=== PATIENT | male | born 1980 | race Caucasian/White ===

== ENCOUNTER 2016-10-21 04:44 | Observation (INO) ==
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
[2016-10-21 05:53] LABS: Bilirubin,Urine Negative (Negative); Blood,Urine Trace (Negative); Clarity,Urine Clear (Clear); Color,Urine Yellow (Yellow); Glucose,Urine (UA) Normal (Normal); Ketones,Urine Negative (Negative); Leukocyte Esterase,Urine Negative (Negative); Nitrite,Urine Negative (Negative); PH,Urine 6.5 pH Units (5.0-8.0); Protein,Urine Negative (Neg-Trace); Specific Gravity,Urine 1.007 (1.010-1.025); Urobilinogen,Urine Normal (Normal)
[2016-10-21 05:55] LABS: Bacteria,Urine None Seen per hpf (None-Few); Hyaline Casts,Urine None Seen per lpf (None-Few); RBC,Urine 0-3 per hpf (0-3); Squamous Epithelial Cell,Urine Many per lpf (None-Few); WBC,Urine 0-3 per hpf (0-3)
[2016-10-21 05:58] LABS: Amphetamine Screen,Urine Negative ng/mL (Cutoff=1000); Barbiturate Screen,Urine Negative ng/mL (Cutoff=200); Benzodiazepines Screen,Urine Negative ng/mL (Cutoff=200); Cannabinoid Screen,Urine Negative ng/mL (Cutoff = 50); Cocaine Screen,Urine Negative ng/mL (Cutoff= 300); Opiate Screen,Urine Negative ng/mL (Cutoff=300); Phencyclidine Screen,Urine Negative ng/mL (Cutoff=25)
[2016-10-21 06:05] LABS: Basophils % 0.3 %; Eosinophils # 0.2 K/mcL (0.0-0.6); Eosinophils % 1.5 %; Hematocrit 38.1 % (37.5-50.1); Hemoglobin 13.3 g/dL (12.9-16.9); Immature Granulocytes % 0.5 % (0-4); Lymphocytes # 2.6 K/mcL (0.6-4.6); Lymphocytes % 25.8 %; Mean Corpuscular HGB Conc 34.9 g/dL (31.6-35.5); Mean Corpuscular Hemoglobin 29.7 pg (28.0-33.3); Mean Platelet Volume 10.9 fL (9.4-12.4); Monocytes # 0.7 K/mcL (0.0-1.3); Monocytes % 7.4 %; Neutrophils # 6.5 K/mcL (1.6-8.9); Platelet Count 173 K/mcL (140-400); Red Blood Count 4.48 M/mcL (4.19-5.50); Red Cell Distribution Width 13.3 % (11.5-14.5); Segmented Neutrophils % 64.5 %
[2016-10-21 06:19] LABS: BUN/Creatinine Ratio 14 (6-26); Blood Urea Nitrogen 10 mg/dL (8-26); Calcium 8.5 mg/dL (8.6-10.8); Carbon Dioxide 21 mEq/L (19-29); Chloride 104 mEq/L (98-109); Ethanol 17 mg/dL (0-10); Glucose 123 mg/dL (70-99); Osmolality,Calculated 288 (280-300); Potassium 2.9 mEq/L (3.5-4.5); Sodium 139 mEq/L (136-145); eGFR For African Americans > 60 (> 60); eGFR For Non-African Americans > 60 (> 60)
[2016-10-21 06:20] LABS: Acetaminophen < 1.0 mcg/mL (10-30); Salicylate < 5.0 mg/dL (15-30)
--- NOTE | 2016-10-21 08:02 | Internal Med History&Physical ---
Date of Encounter: 10/21/16 Time of Encounter: 08:00 Assessment and Plan (1) Suicide attempt Current visit: Yes Status: Acute Assess: Patient presents from ED for suicide attempt by medication overdose and suicidal ideations. Plan: Psych consult ordered Sitter ordered BMP ordered Zofran ordered PRN Monitor patient closely for respiratory distress Bedside suctioning ordered PRN Aspiration precautions ordered Cardiac telemetry ordered [place] precautions ordered Poison Control notified by ED with recommendation to repeat BMP in 2-3 hours, Control N/V, and observation for 6-8 hours (2) Medication overdose Current visit: Yes Status: Acute Assess: Patient presents from ED for suicide attempt by medication overdose and suicidal ideations. Plan: Psych consult ordered Sitter ordered BMP ordered Zofran ordered PRN Monitor patient closely for respiratory distress Bedside suctioning ordered PRN Aspiration precautions ordered Cardiac telemetry ordered [place] precautions ordered Poison Control notified by ED with recommendation to repeat BMP in 2-3 hours, Control N/V, and observation for 6-8 hours Qualifiers: Encounter type: initial encounter Injury intent: intentional self-harm Qualified Code(s): T50.902A - Poisoning by unspecified drugs, medicaments and biological substances, intentional self-harm, initial encounter (3) Suicidal ideation Current visit: Yes Status: Acute Assess: Patient presents from ED for suicide attempt by medication overdose and suicidal ideations. Plan: Psych consult ordered Sitter ordered (4) DVT prophylaxis Current visit: Yes Status: Acute Assess: DVT prophylaxis ordered due to patient's sedentary non-responsive status and inability to ambulate. Plan: Anti-embolic stockings ordered Internal Medicine - H&P: HPI Chief complaint: Suicide attempt/suicidal ideation Admitted From: Emergency Dept Plans for Post Hospital Care: Home History of present illness: Mr. Cisse is a 35 year old male who presents from the ED today for having attempted suicide and having suicidal ideations. Patient has been non- contributory throughout the day due to lethargy and not being able to be roused. Patient barely responds to painful stimuli. Past Med Surg Social Fam HX - Past Medical History Medical history: hypertension Psychiatric history: no psych history - Past Surgical History Surgical History: non-contributory - Social History Smoking Status: Current every day smoker Smokeless Tobacco Status: No Alcohol use: occasionally Drug use: cocaine, marijuana, other Internal Medicine - H&P: Meds Baclofen [Lioresal] 10 mg PO TID 10/21/16 [History] Lisinopril [Zestril] 20 mg PO HS 10/21/16 [History] TraZODone 50 mg PO HS 10/21/16 [History] Allergies No Known Allergies Allergy (Verified 09/27/16 23:57) ROS unobtainable: due to mental status All Systems PM: A 10-system review of systems was performed and is negative for pertinent findings except as documented above in the HPI. - Constitutional Vitals: Temp Pulse Resp BP Pulse Ox 38.1 F L 74 10 145/85 93 10/21/16 07:29 10/21/16 07:29 10/21/16 07:29 10/21/16 07:29 10/21/16 07:29 Exam: Mr. Cisse is a 35 year-old male who was originally seen by me at 08:00 today. Patient is currently non-verbal and non-responsive only to pain stimuli. Brief physical exam conducted. Respirations = 15 and shallow with no apparent respiratory distress noted. Lungs clear bilaterally on auscultation. HR = 78 with regular rhythm. Nurse instructed to page me when he regains consciousness. Sitter is currently in place. Will re-attempt history and physical when conscious. 09:35 - Patient continues to be non-responsive only to pain stimuli. Patient is now coughing up sputum and saliva. Bedside suctioning ordered and performed at bedside. Patient placed on side and bolstered to prevent aspiration on fluids. Continuous aspiration precautions ordered. Respirations = 14 and shallow with no apparent respiratory distress noted. HR = 75 with regular rhythm. Patient non-contributory all day and hard to awaken. - Head Head exam: Present: atraumatic, normocephalic - Eye Additional comments: Pupils equal and non-fixed. - ENT Additional comments: Patient coughing up saliva and mucous. Suctioned at bedside throughout the day. - Neck Neck exam general surgery: Present: trachea midline - Respiratory Respiratory exam: Present: decreased breath sounds - Cardiovascular Additional comments: Patients HR in 70's throughout the day on auscultation. - GI/Abdominal Additional comments: Unable to assess due to altered mental status. - Rectal Rectal exam: Present: deferred - Additional comments: exam deferred. - Extremities Exam Extremities exam: Present: pedal edema, radial pulses palpable and symetrical Additional comments: Patient has excoriations and bruising bilaterally in lower legs. - Back Exam Additional comments: Unable to assess due to altered mental status. - Neurological Exam Additional comments: Unable to assess due to altered mental status. - Psychiatric Psychiatric exam: Present: suicidal ideation - Skin Skin exam: Present: abrasion Additional comments: Patient's skin is warm, dry, and intact with the exception of abrasions located bilaterally on lower legs. Bruising on lower legs also present bilaterally. Internal Med - H&P Results - Labs CBC & Chem 7: 10/21/16 05:59 10/21/16 09:18 - EKG Data EKG shows normal: sinus rhythm - EKG Data Prior EKG available for review: yes When compared to previous EKG: there is no significant change EKG comments: 10/21/16 10:23 EKG dated 09/28/16 shows sinus rhythm with incomplete right bundle branch block. EKG dated 10/20/16 shows sinus rhythm with possible right ventricular conduction delay.
[2016-10-21] MEDS ORDERED: Naloxone 0.4 MG/ML INJ IVP PRN (08:09)
[2016-10-21] MEDS ORDERED: Ondansetron 4 MG/2 ML VIAL IVP PRN (08:09)
[2016-10-21 09:41] LABS: BUN/Creatinine Ratio 15 (6-26); Blood Urea Nitrogen 11 mg/dL (8-26); Calcium 8.5 mg/dL (8.6-10.8); Carbon Dioxide 25 mEq/L (19-29); Chloride 105 mEq/L (98-109); Chol/HDL Ratio 4.8 (0-4.9); Cholesterol 129 mg/dL (< 200); Glucose 134 mg/dL (70-99); HDL Cholesterol 27 mg/dL (40-59); LDL Cholesterol,Calculated 64 mg/dL (0-99); Osmolality,Calculated 289 (280-300); Potassium 3.7 mEq/L (3.5-4.5); Sodium 139 mEq/L (136-145); Triglycerides 191 mg/dL (< 150); eGFR For African Americans > 60 (> 60); eGFR For Non-African Americans > 60 (> 60)
[2016-10-21 11:44] LABS: Bilirubin,Urine Negative (Negative); Blood,Urine Negative (Negative); Clarity,Urine Clear (Clear); Color,Urine Yellow (Yellow); Glucose,Urine (UA) Normal (Normal); Ketones,Urine Negative (Negative); Leukocyte Esterase,Urine Negative (Negative); Nitrite,Urine Negative (Negative); Protein,Urine Trace mg/dL (Neg-Trace); Specific Gravity,Urine 1.015 (1.010-1.025); Urobilinogen,Urine Normal (Normal)
[2016-10-21 11:47] LABS: Bacteria,Urine None Seen per hpf (None-Few); Hyaline Casts,Urine None Seen per lpf (None-Few); RBC,Urine 0-3 per hpf (0-3); Squamous Epithelial Cell,Urine Many per lpf (None-Few); WBC,Urine 0-3 per hpf (0-3)
--- NOTE | 2016-10-21 14:21 | Consult Note ---
Date of Encounter: 10/22/16 Time of Encounter: 14:18 Assessment & Recommendation (1) Medication overdose Current visit: Yes Status: Acute Assessment & Recommendation: Will reevaluate when patient is awake, alert. Please notify psychiatry when patient is alert and can be interviewed thank you. Qualifiers: Encounter type: initial encounter Injury intent: intentional self-harm Qualified Code(s): T50.902A - Poisoning by unspecified drugs, medicaments and biological substances, intentional self-harm, initial encounter History of Present Illness Patient: new to practice Requesting Physician: Rosa Salas Reason for consult: Overdose suicide attempt History of present illness: Mr. Cisse is a 35 year old male admitted to the medical floor for treatment after overdose in a suicide attempt. Psychiatric consultation was requested. Patient is currently sleeping and lethargic and cannot be evaluated. CC: Rosa Salas Past Med Surg Social Fam HX - Past Medical History Medical history: hypertension - Past Surgical History Surgical History: non-contributory - Social History Smoking Status: Current every day smoker Smokeless Tobacco Status: No Alcohol use: occasionally Drug use: cocaine, marijuana, other Medications & Allergies Baclofen [Lioresal] 10 mg PO TID 10/21/16 [History] Lisinopril [Zestril] 20 mg PO HS 10/21/16 [History] TraZODone 50 mg PO HS 10/21/16 [History] Allergies No Known Allergies Allergy (Verified 09/27/16 23:57) Mental Status Exam Additional observations: Obese young white male sleeping cannot be aroused. Results - Vital Signs Vital signs: Temp Pulse Resp BP Pulse Ox 98.2 F 53 18 113/54 95 10/21/16 11:40 10/21/16 11:40 10/21/16 11:40 10/21/16 11:40 10/21/16 11:40 - Labs Labs: Laboratory Last Values WBC 10.0 K/mcL (4.3-11.1) 10/21/16 05:59 RBC 4.48 M/mcL (4.19-5.50) 10/21/16 05:59 Hgb 13.3 g/dL (12.9-16.9) 10/21/16 05:59 Hct 38.1 % (37.5-50.1) 10/21/16 05:59 MCV 85.0 fL (83.0-100.0) 10/21/16 05:59 MCH 29.7 pg (28.0-33.3) 10/21/16 05:59 MCHC 34.9 g/dL (31.6-35.5) 10/21/16 05:59 RDW 13.3 % (11.5-14.5) 10/21/16 05:59 Plt Count 173 K/mcL (140-400) 10/21/16 05:59 MPV 10.9 fL (9.4-12.4) 10/21/16 05:59 Immature Gran % 0.5 % (0-4) 10/21/16 05:59 Seg Neutrophils % 64.5 % 10/21/16 05:59 Lymphocytes % 25.8 % 10/21/16 05:59 Monocytes % 7.4 % 10/21/16 05:59 Eosinophils % 1.5 % 10/21/16 05:59 Basophils % 0.3 % 10/21/16 05:59 Neutrophils # 6.5 K/mcL (1.6-8.9) 10/21/16 05:59 Lymphocytes # 2.6 K/mcL (0.6-4.6) 10/21/16 05:59 Monocytes # 0.7 K/mcL (0.0-1.3) 10/21/16 05:59 Eosinophils # 0.2 K/mcL (0.0-0.6) 10/21/16 05:59 Basophils # 0.0 K/mcL (0.0-0.2) 10/21/16 05:59 Sodium 139 mEq/L (136-145) 10/21/16 09:18 Potassium 3.7 mEq/L (3.5-4.5) 10/21/16 09:18 Chloride 105 mEq/L (98-109) 10/21/16 09:18 Carbon Dioxide 25 mEq/L (19-29) 10/21/16 09:18 BUN 11 mg/dL (8-26) 10/21/16 09:18 Creatinine 0.74 mg/dL (0.72-1.25) 10/21/16 09:18 Est GFR ( Amer) > 60 (> 60) 10/21/16 09:18 Est GFR (Non-Af Amer) > 60 (> 60) 10/21/16 09:18 BUN/Creatinine Ratio 15 (6-26) 10/21/16 09:18 Glucose 134 mg/dL (70-99) H 10/21/16 09:18 Calculated Osmolality 289 (280-300) 10/21/16 09:18 Calcium 8.5 mg/dL (8.6-10.8) L 10/21/16 09:18 Magnesium 2.0 mg/dL (1.6-2.6) 10/21/16 05:59 Triglycerides 191 mg/dL (< 150) H 10/21/16 09:18 Cholesterol 129 mg/dL (< 200) 10/21/16 09:18 LDL Cholesterol, Calc 64 mg/dL (0-99) 10/21/16 09:18 VLDL Cholesterol, Calc 38 mg/dL (< 31) H 10/21/16 09:18 HDL Cholesterol 27 mg/dL (40-59) L 10/21/16 09:18 Cholesterol/HDL Ratio 4.8 (0-4.9) 10/21/16 09:18 Urine Color Yellow (Yellow) 10/21/16 11:17 Urine Clarity Clear (Clear) 10/21/16 11:17 Urine pH 6.0 pH Units (5.0-8.0) 10/21/16 11:17 Ur Specific [place] 1.015 (1.010-1.025) 10/21/16 11:17 Urine Protein Trace mg/dL (Neg-Trace) 10/21/16 11:17 Urine Glucose (UA) Normal mg/dL (Normal) 10/21/16 11:17 Urine Ketones Negative mg/dL (Negative) 10/21/16 11:17 Urine Blood Negative (Negative) 10/21/16 11:17 Urine Nitrite Negative (Negative) 10/21/16 11:17 Urine Bilirubin Negative (Negative) 10/21/16 11:17 Urine Urobilinogen Normal mg/dL (Normal) 10/21/16 11:17 Ur Leukocyte Esterase Negative (Negative) 10/21/16 11:17 Urine Microscopic RBC 0-3 per hpf (0-3) 10/21/16 11:17 Urine Microscopic WBC 0-3 per hpf (0-3) 10/21/16 11:17 Ur Squamous Epith Cells Many per lpf (None-Few) H 10/21/16 11:17 Urine Bacteria None Seen per hpf (None-Few) 10/21/16 11:17 Hyaline Casts None Seen per lpf (None-Few) 10/21/16 11:17 Ur Culture Indicated? NO (NO) 10/21/16 11:17 Salicylates < 5.0 mg/dL (15-30) L 10/21/16 05:59 Urine Opiates Screen Negative ng/mL (Fuozwe=954) 10/21/16 05:10 Acetaminophen < 1.0 mcg/mL (10-30) L 10/21/16 05:59 Ur Barbiturates Screen Negative ng/mL (Kkjpzx=310) 10/21/16 05:10 Ur Phencyclidine Scrn Negative ng/mL (Cutoff=25) 10/21/16 05:10 Ur Amphetamines Screen Negative ng/mL (Tgtswf=2951) 10/21/16 05:10 U Benzodiazepines Scrn Negative ng/mL (Ofrxhr=677) 10/21/16 05:10 Urine Cocaine Screen Negative ng/mL (Cutoff= 300) 10/21/16 05:10 U Marijuana (THC) Screen Negative ng/mL (Cutoff = 50) 10/21/16 05:10 Ethyl Alcohol 17 mg/dL (0-10) H 10/21/16 05:59 - Impressions Impressions Chest X-Ray 10/21/16 09:22 IMPRESSION: Borderline cardiomegaly, stable. Low lung volumes. Increased lung markings at the bilateral parahilar regions, may be related to bronchitis. D/ / Benjamin Landeros MD / Benjamin Landeros MD Interpreting Provider: Benjamin Landeros MD Consult Discharge Plan - Plan Referrals: NO,PCP [Primary Care Provider] -
--- NOTE | 2016-10-21 18:12 | Electrocardiograph Report ---
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
--- NOTE | 2016-10-21 19:03 | Event Note ---
Date of Encounter: 10/21/16 Time of Encounter: 19:00 Patient seen and examined with nurse practitioner. Patient presents with diclofenac overdose. Reportedly he took 90 pills. He also drink alcohol. He was sleepy all the, however I was able to reassess him now and he is now more alert well-being orders. Mention that has some nausea but denies any abdominal pain. No hemodialysis. He is under continuous telemetry monitoring. Sit at that site. Psychiatry evaluation tomorrow. Because patient has been sleeping all day for recommended CT scan of the head which is not show any intracranial bleed. Hydrate the patient. monitor electrolytes. Transfer to psych tomorrow if all well. He denies any other coingestion
[2016-10-21] MEDS: Pantoprazole 40 MG VIAL IVP SCH (21:44)
[2016-10-21] MEDS: 0.9 % Sodium Chloride 1,000 ML IVC SCH (21:55)
[2016-10-22] MEDS: 0.9 % Sodium Chloride 1,000 ML IVC SCH ×2 (06:12→21:59)
[2016-10-22] MEDS ORDERED: Acetaminophen 325 MG TABLET PO PRN (08:48)
[2016-10-22] MEDS ORDERED: *HR* Promethazine 25 MG/ML VIAL IVP PRN (08:48)
[2016-10-22 09:12] LABS: Basophils % 0.1 %; Eosinophils % 0.3 %; Hematocrit 37.3 % (37.5-50.1); Hemoglobin 13.2 g/dL (12.9-16.9); Immature Granulocytes % 0.9 % (0-4); Immature Platelets 9.8 % (1.1-6.1); Lymphocytes # 2.1 K/mcL (0.6-4.6); Lymphocytes % 14.1 %; Mean Corpuscular HGB Conc 35.4 g/dL (31.6-35.5); Mean Corpuscular Hemoglobin 28.9 pg (28.0-33.3); Mean Corpuscular Volume 81.8 fL (83.0-100.0); Mean Platelet Volume 11.8 fL (9.4-12.4); Monocytes # 0.7 K/mcL (0.0-1.3); Neutrophils # 11.8 K/mcL (1.6-8.9); Platelet Count 159 K/mcL (140-400); Red Blood Count 4.56 M/mcL (4.19-5.50); Red Cell Distribution Width 13.1 % (11.5-14.5); Segmented Neutrophils % 79.6 %
[2016-10-22] MEDS: Pantoprazole 40 MG VIAL IVP SCH (11:02)
[2016-10-22] MEDS: Nicotine 21 MG PATCH.TD24 TD SCH (11:02)
--- NOTE | 2016-10-22 15:20 | Discharge Summary ---
Date of Encounter: 10/22/16 Time of Encounter: 15:18 - Discharge Diagnosis (1) Suicide attempt Priority: Primary Status: Acute (2) Drug overdose, intentional Priority: Primary Status: Acute Qualifiers: Encounter type: subsequent encounter Qualified Code(s): T50.902D - Poisoning by unspecified drugs, medicaments and biological substances, intentional self-harm, subsequent encounter (3) Substance abuse Priority: Secondary Status: Chronic - Discharge Medications Home Medications: Baclofen [Lioresal] 10 mg PO TID 10/21/16 [History] Lisinopril [Zestril] 20 mg PO HS 10/21/16 [History] TraZODone 50 mg PO HS 10/21/16 [History] Acetaminophen [Tylenol] 650 mg PO Q6HR PRN #0 tablet 10/22/16 [Rx] Naloxone [Narcan] 0.4 mg IVP Q2MIN PRN #0 inj 10/22/16 [Rx] Nicotine Patch [Nicoderm] 21 mg TD DAILY patch.td24 10/22/16 [Rx] Promethazine [Phenergan] 12.5 mg IVP Q6HR PRN #0 vial 10/22/16 [Rx] Allergies/Adverse Reactions: Allergies No Known Allergies Allergy (Verified 09/27/16 23:57) Procedures/tests Complete & Pending: Procedures Performed prior 72 hours Category Date Time Status CT head/brain wo con [CT] Stat Cat Scan 10/21/16 16:14 Completed Date of admission: 10/21/16 06:57 Primary care physician: PCP NO Consults: 10/21/16 08:15 Consult to Pattern Cutter [CONS] Routine Reason for SW Consult: Suicide attempt/suicidal ideation 10/21/16 08:19 Consult to Psychiatry [CONS] Routine Consulting Provider: [facility] [place] Reason for Consult: Attempted suicide/suicidal ideation Call Completed: Yes Discharging clinician: Leslie Bojorquez Anticipated date of discharge: 10/22/16 - Patient Status Disposition: Transfer Psychiatric Hosp Condition: Fair Functional capacity at discharge: independent ambulation Overall status at discharge: patient is progressing back to baseline - Discharge Instructions Follow Up With: NO,PCP [Primary Care Provider] - - Diet and Activity Diet: regular diet Hospital course: Mr. Cisse is a 35 year old male with history of polysubstance abuse, depression and PTSD was admitted after an intentional drug overdose with Diclofenac. He reportedly took around 90 pills of diclofenac and was noted to be drowsy and stuporous at the time of admission. Labs revealed no gross metabolic abnormalities except some hypokalemia and his serum alcohol level was slightly high. Serum potassium was supplemented and he was given aggressive IV hydration. He was kept on one-on-one sitter due to suicidal ideation. Poison control was contacted and recommended 24-hour monitoring clinically and repeating labs. Patient has been evaluated by psychiatry and recommended admission to inpatient psychiatry for continued counseling for depression and suicidal ideation. He is currently being pink slipped, pending this admission as he is noted to be a threat to himself due to history of current and previous suicidal attempts. Patient is currently medically stable for discharge as he is alert and oriented at this time, tolerates oral diet, able to void urine and denies complaints. - Time Spent with Patient Total time spent providing and/or coordinating discharge services: Greater than 30 minutes (45 min) - Constitutional Vitals: Temp Pulse Resp BP Pulse Ox 97.7 F 61 16 131/55 98 10/22/16 11:23 10/22/16 11:23 10/22/16 11:23 10/22/16 11:23 10/22/16 11:23 General appearance: Present: A&O X 3, answers questions appropriately - Respiratory Respiratory exam: Present: CTAB. Absent: accessory muscle use, rales, rhonchi, wheezes - Cardiovascular Cardiovascular exam: Present: RRR, +S1, +S2. Absent: diastolic murmur, gallop, rubs, systolic murmur - VTE Documentation of Mechanical Device: Graduated compression elastic hosiery
--- NOTE | 2016-10-22 16:03 | Psychiatry Progress Note ---
Date of Encounter: 10/22/16 Time of Encounter: 14:30 Subjective Interval history: Patient is seen for follow-up consult. Today she is alert and awake but he was very guarded and did not share with me any information history. He tells me that he was seen by psychiatrist in the past and was placed on medication for depression and bipolar and she has not been taking medication as advised. Regarding his overdose he was vague about circumstances and he tell me "am core depression without any elaboration. I shared with him the treatment plan to transfer him to 1 a when he is medically clear. Plan was also shared one nursing staff and he will be admitted on involuntary basis. Objective: Exam Patient orientation: Yes Person, Yes Time, Yes Place Level of alertness: Alert Patient appearance: Appropriate, Unkempt, Disheveled, Obese Behavior: calm, cooperative, guarded, suspicious Psychomotor activity: Normal Eye contact: Minimal Contact Mood description: Depressed, Anxious, Labile Affect description: congruent with mood, labile Speech pattern: Normal rate, Normal rhythm, Normal tone, Limited Speech volume: Normal Thought process: Linear, Goal Oriented Thought content: Yes Suicidal ideation, No Homicidal ideation, No Overt delusions, Yes Preoccupation Perceptual disturbances: No Auditory hallucinations, No Visual hallucinations Judgment: Fair Insight: Partial Results - Vital Signs Vital Signs: Temp Pulse Resp BP Pulse Ox 97.7 F 61 16 131/55 98 10/22/16 11:23 10/22/16 11:23 10/22/16 11:23 10/22/16 11:23 10/22/16 11:23 - Labs Labs: Laboratory Results - last 24 hr 10/21/16 10/22/16 18:26 08:54 WBC 14.8 H RBC 4.56 Hgb 13.2 Hct 37.3 L MCV 81.8 L MCH 28.9 MCHC 35.4 RDW 13.1 Plt Count 159 MPV 11.8 Immature Gran % 0.9 Seg Neutrophils % 79.6 Lymphocytes % 14.1 Monocytes % 5.0 Eosinophils % 0.3 Basophils % 0.1 Neutrophils # 11.8 H Lymphocytes # 2.1 Monocytes # 0.7 Eosinophils # 0.0 Basophils # 0.0 Immature Plt Fraction 9.8 H POC Glucose 135 H - Impressions ITS Impressions Chest X-Ray 10/21/16 09:22 IMPRESSION: Borderline cardiomegaly, stable. Low lung volumes. Increased lung markings at the bilateral parahilar regions, may be related to bronchitis. D/ / Benjamin Landeros MD / Benjamin Landeros MD Interpreting Provider: Benjamin Landeros MD Head CT 10/21/16 16:14 IMPRESSION: No acute intracranial abnormality. D/ / Lisa James MD / Lisa James MD Interpreting Provider: Lisa James MD Assessment and Plan (1) Medication overdose Current visit: Yes Status: Acute Plan: Continue hospitalization, Close observation, Suicide Precautions per unit protocol, Encourage participation in unit milieu, Group Therapy, Monitor sleep, Monitor appetite Additional Plan: Admit patient to 1 a after medical stabilization, on involuntary basis. Qualifiers: Encounter type: initial encounter Injury intent: intentional self-harm Qualified Code(s): T50.902A - Poisoning by unspecified drugs, medicaments and biological substances, intentional self-harm, initial encounter Consult Discharge Plan - Plan Referrals: NO,PCP [Primary Care Provider] -
[2016-10-23] MEDS: 0.9 % Sodium Chloride 1,000 ML IVC SCH (04:28)
[2016-10-23] MEDS: Pantoprazole 40 MG VIAL IVP SCH (08:33)
[2016-10-23] MEDS: Nicotine 21 MG PATCH.TD24 TD SCH (08:33)
[2016-10-23] MEDS ORDERED: Lisinopril 20 MG TABLET PO SCH (13:00)
--- NOTE | 2016-10-23 14:17 | Internal Med Progress Note ---
Date of Encounter: 10/23/16 Time of Encounter: 14:16 - Assessment and plan (1) Suicide attempt Current Visit: Yes Status: Acute Assessment and plan: Continue one-on-one watch for patient's safety. Denies suicidal thoughts currently. Has been evaluated by psychiatry, awaiting transfer to inpatient psychiatric unit. (2) Drug overdose, intentional Current Visit: Yes Status: Acute Assessment and plan: Admitted with intentional overdose on diclofenac. Currently stable. We will repeat labs. Reports constipation, we will start senna plus along with when necessary MiraLAX. Qualifiers: Encounter type: subsequent encounter Qualified Code(s): T50.902D - Poisoning by unspecified drugs, medicaments and biological substances, intentional self-harm, subsequent encounter (3) Substance abuse Current Visit: Yes Status: Chronic (4) Essential hypertension Current Visit: Yes Status: Chronic Assessment and plan: Blood pressure noted to be slightly elevated. We will restart home dose of lisinopril and continue to monitor. - Subjective Interval history: Reports feeling much better and very happy today; no chest pain, anxiety, tremors; - Constitutional Vitals: Temp Pulse Resp BP Pulse Ox 97.9 F 66 16 149/67 97 10/23/16 11:26 10/23/16 11:26 10/23/16 11:26 10/23/16 14:00 10/23/16 11:26 General appearance: Present: A&O X 3, answers questions appropriately - Respiratory Respiratory exam: Present: CTAB. Absent: accessory muscle use, rales, rhonchi, wheezes - Cardiovascular Cardiovascular exam: Present: RRR, +S1, +S2. Absent: diastolic murmur, gallop, rubs, systolic murmur Internal Medicine: Result - Labs CBC & Chem 7: 10/22/16 08:54 10/21/16 09:18 - VTE Documentation of Mechanical Device: Graduated compression elastic hosiery Consult Discharge Plan - Plan Referrals: NO,PCP [Primary Care Provider] -
[2016-10-23 17:44] LABS: Basophils % 0.2 %; Eosinophils # 0.1 K/mcL (0.0-0.6); Eosinophils % 0.8 %; Hemoglobin 12.4 g/dL (12.9-16.9); Immature Granulocytes % 0.9 % (0-4); Immature Platelets 10.7 % (1.1-6.1); Lymphocytes # 2.1 K/mcL (0.6-4.6); Lymphocytes % 23.3 %; Mean Corpuscular HGB Conc 33.5 g/dL (31.6-35.5); Mean Corpuscular Hemoglobin 28.9 pg (28.0-33.3); Mean Corpuscular Volume 86.2 fL (83.0-100.0); Mean Platelet Volume 11.5 fL (9.4-12.4); Monocytes # 0.4 K/mcL (0.0-1.3); Monocytes % 4.9 %; Neutrophils # 6.3 K/mcL (1.6-8.9); Platelet Count 133 K/mcL (140-400); Red Blood Count 4.29 M/mcL (4.19-5.50); Red Cell Distribution Width 12.9 % (11.5-14.5); Segmented Neutrophils % 69.9 %
[2016-10-23 18:38] LABS: BUN/Creatinine Ratio 15 (6-26); Blood Urea Nitrogen 10 mg/dL (8-26); Calcium 8.6 mg/dL (8.6-10.8); Carbon Dioxide 20 mEq/L (19-29); Chloride 105 mEq/L (98-109); Glucose 100 mg/dL (70-99); Osmolality,Calculated 285 (280-300); Potassium 4.1 mEq/L (3.5-4.5); Sodium 138 mEq/L (136-145); eGFR For African Americans > 60 (> 60); eGFR For Non-African Americans > 60 (> 60)
[2016-10-23] MEDS: Sennosides/Docusate Sodium TABLET PO SCH ×2 (19:45→20:11)
[2016-10-23 19:54] VITALS: BP 155/79
== END 2016-10-23 21:50 ==
LOC: 3BNU 04:44 → EMEROO 04:44 → SUATTDRO 06:57 → 3BNU 07:27
PROVIDERS: ADMIT Nurse Practitioner Family; ATTEND Internal Medicine

== ENCOUNTER 2016-10-23 22:13 | Inpatient (IN) ==
[2016-10-23] MEDS ORDERED: Ibuprofen 400 MG TABLET PO PRN (23:59)
[2016-10-23] MEDS ORDERED: hydrOXYzine pamoate 25 MG CAPSULE PO PRN (23:59)
[2016-10-23] MEDS ORDERED: MOM Conc 10 ML UD.LIQ PO PRN (23:59)
[2016-10-23] MEDS ORDERED: Mag Hydrox/Al Hydrox/Simeth 30 ML UDC PO PRN (23:59)
[2016-10-23] MEDS ORDERED: Haloperidol Lactate 5 MG/ML VIAL IM PRN (23:59)
[2016-10-23] MEDS ORDERED: *HR* LORazepam 1 MG TABLET PO PRN (23:59)
[2016-10-23] MEDS ORDERED: *HR* LORazepam 2 MG/ML VIAL IM PRN (23:59)
[2016-10-24] MEDS: traZODone 50 MG TABLET PO PRN ×2 (01:15→21:12)
[2016-10-24] MEDS: Nicotine 21 MG PATCH.TD24 TD SCH (09:24)
[2016-10-24] MEDS: Sennosides/Docusate Sodium TABLET PO SCH ×2 (09:25→21:12)
[2016-10-24] MEDS: Lisinopril 20 MG TABLET PO SCH (09:25)
--- NOTE | 2016-10-24 11:30 | Psychiatry History & Physical ---
Date of Encounter: 10/24/16 Time of Encounter: 11:00 History of Present Illness Patient Stated Chief Complaint: Suicidal, hearing voices Medicare Admission Attestation: For traditional Medicare patients the provided hospital inpatient services are reasonable and necessary and in the case of services not specified as inpatient -only under 42 CFR 419.22 (n), that they are appropriately provided as inpatient services in accordance 42 CFR 412.3. For Critical Access Hospital the patient may reasonably be expected to be discharged or transferred to a hospital within 96 hours after admission to the Critical Access Hospital. Admitted From: Emergency Dept History of Present Illness: Mr. Cisse is a 35 year old male admitted from the emergency room with suicidal ideation and auditory hallucinations. Patient called the police and reported that she was planning to cut himself or community sports coordinator traffic to kill himself. Patient also reported hearing voices telling him to kill himself. He reports lack of sleep and depression and hopelessness. He has been out of medication for about a week and his condition became worse. In the ED his tox screen was positive for cocaine and THC. Patient has history of depression and bipolar disorder and has been hospitalized in the past in [place]. He was also seen as outpatient in a mental health Center in [place]. He was treated with risperidone and Depakote, on admission his Depakote level was below the limits. 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 He admits to using THC and cocaine occasionally. He had extensive legal history and has been to penitentiary 10 times, charges were mostly also assault. Past Med Surg Social Fam HX - Past Medical History Medical history: hypertension - Past Psychiatric History Psychiatric history: Reports: bipolar, prior suicide attempt, previous psychiatric hospitalization Past psychiatric history details: History of hospitalization in [place]. No records available at this time Family psychiatric history: Unknown Family History of Suicide: Unknown - Past Surgical History Surgical History: non-contributory - Social History Smoking Status: Current every day smoker Smokeless Tobacco Status: No Alcohol use: occasionally Drug use: cocaine, opiates, marijuana, other - Family History Mother Adopted: [place]: [place]en Lopez Age: 60 Family Member Ethnicity: Non- Living Status: Still Living Hx Family Cardiac Disorders: (unknown) Hx Family Respiratory Disorders: Yes (COPD) Hx Family Cancer: Yes (Breast Cancer) Hx Family GI Disorders: (unknown) Hx Family Genitourinary Disorders: (unknown) Hx Family Endocrine Disorder: (unknown) Hx Family Musculoskeletal Disorders: (unknown) Hx Family Neuromuscular Disorders: (unknown) Hx Family Neurologic Disorders: (unknown) Hx Family HEENT Disorders: (unknown) Hx Family Autoimmune Disorders: (unknown) Hx Family Reproductive Disorders: (unknown) Hx Family Psychosocial Disorders: (unknown) Hx Family Medical Disorders: (unknown) Father History Unknown: Yes Adopted: (does not know who father is) Medications & Allergies Baclofen [Lioresal] 10 mg PO TID 10/21/16 [History] Lisinopril [Zestril] 20 mg PO HS 10/21/16 [History] TraZODone 50 mg PO HS 10/21/16 [History] Acetaminophen [Tylenol] 650 mg PO Q6HR PRN #0 tablet 10/22/16 [Rx] Nicotine Patch [Nicoderm] 21 mg TD DAILY patch.td24 10/22/16 [Rx] Allergies No Known Allergies Allergy (Verified 09/27/16 23:57) Review of Systems Psychiatric: Reports: abnormal sleep pattern, suicidal ideation, auditory hallucinations, hopelessness Mental Status Exam Patient orientation: Yes Person, Yes Time, Yes Place Level of alertness: Alert Patient appearance: Appropriate, Disheveled Behavior: cooperative, nervous, anxious Psychomotor activity: Normal Eye contact: Maintains Eye Contact Mood description: Depressed, Anxious, Irritable Affect description: congruent with mood, labile, dysphoric Speech pattern: Normal rate, Normal rhythm, Normal tone, Coherent Speech volume: Normal Thought process: Linear, Goal Oriented Thought content: Yes Suicidal ideation, No Homicidal ideation, No Overt delusions Perceptual disturbances: Yes Auditory hallucinations, No Visual hallucinations Attention span: Capable of Focused Attention Memory description: Grossly Intact Patient reliability: Reliable Historian Intelligence estimate: Average Judgment: Limited Insight: Partial Results - Vital Signs Vital signs: Temp Pulse Resp BP 98.6 F 65 16 156/82 10/24/16 09:00 10/24/16 09:00 10/24/16 09:00 10/24/16 09:00 Assessment and Plan (1) Bipolar disorder with psychotic features Current visit: Yes Status: Acute Plan: Admit inpatient for safety and stabilization, Close observation, Suicide Precautions per unit protocol, Encourage participation in unit milieu, Group Therapy, Monitor sleep, Monitor appetite Additional Plan: Will check Depakote level in 2 days and requests psychiatric records from previous hospitalization. Risks, benefits, side effects, alternatives discussed w/pt: Yes Patient agreeable to treatment: Yes (2) Substance abuse Current visit: No Status: Chronic Plan: Admit inpatient for safety and stabilization, Close observation, Suicide Precautions per unit protocol, Encourage participation in unit milieu, Group Therapy, Monitor sleep, Monitor appetite Risks, benefits, side effects, alternatives discussed w/pt: Yes Patient agreeable to treatment: Yes
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
[2016-10-24] MEDS: FLUoxetine 20 MG CAPSULE PO SCH (12:36)
[2016-10-25] MEDS: Lisinopril 20 MG TABLET PO SCH (08:04)
[2016-10-25] MEDS: Nicotine 21 MG PATCH.TD24 TD SCH (08:04)
[2016-10-25] MEDS: FLUoxetine 20 MG CAPSULE PO SCH (08:05)
[2016-10-25] MEDS: Sennosides/Docusate Sodium TABLET PO SCH ×2 (08:05→20:03)
--- NOTE | 2016-10-25 14:01 | Psychiatry Progress Note ---
Date of Encounter: 10/25/16 Time of Encounter: 13:30 Subjective Interval history: Patient is seen for follow-up. He reports feeling much better, is more optimistic and future oriented. He is interested and in activities and groups to learn new coping skills that will help him maintain his mental illness and sobriety. He regrets his suicide attempt and determine not to have suicide as an option. His discharge plans are being completed by social media director. Review of Systems Psychiatric: Reports: depression, suicidal ideation, hopelessness Objective: Exam Patient orientation: Yes Person, Yes Time, Yes Place Level of alertness: Alert Patient appearance: Appropriate, Well Groomed, Obese Behavior: calm, cooperative Psychomotor activity: Normal Eye contact: Maintains Eye Contact Mood description: Euthymic/stable Affect description: congruent with mood, full range Speech pattern: Normal rate, Normal rhythm, Normal tone Speech volume: Normal Thought process: Linear, Goal Oriented Thought content: No Suicidal ideation, No Homicidal ideation, No Overt delusions Perceptual disturbances: No Auditory hallucinations, No Visual hallucinations Judgment: Fair Insight: Partial Results - Vital Signs Vital Signs: Temp Pulse Resp BP 98.1 F 68 18 169/85 10/25/16 09:00 10/25/16 09:00 10/25/16 09:00 10/25/16 09:00 Assessment and Plan (1) Bipolar disorder with psychotic features Current visit: Yes Status: Acute Plan: Continue hospitalization, Close observation, Suicide Precautions per unit protocol, Encourage participation in unit milieu, Group Therapy, Monitor sleep, Monitor appetite Risks, benefits, side effects, alternatives discussed w/pt: Yes Patient agreeable to treatment: Yes (2) Substance abuse Current visit: No Status: Chronic Plan: Continue hospitalization, Close observation, Suicide Precautions per unit protocol, Encourage participation in unit milieu, Group Therapy, Monitor sleep, Monitor appetite Risks, benefits, side effects, alternatives discussed w/pt: Yes Patient agreeable to treatment: Yes Consult Discharge Plan - Plan Referrals: NO,PCP [Primary Care Provider] -
[2016-10-25] MEDS: traZODone 50 MG TABLET PO PRN ×2 (20:03→22:59)
[2016-10-26] MEDS: Nicotine 21 MG PATCH.TD24 TD SCH (08:37)
[2016-10-26] MEDS: FLUoxetine 20 MG CAPSULE PO SCH (08:38)
[2016-10-26] MEDS: Sennosides/Docusate Sodium TABLET PO SCH (08:38)
[2016-10-26 08:56] VITALS: BP 143/87
[2016-10-26] MEDS: Lisinopril 20 MG TABLET PO SCH (09:25)
--- NOTE | 2016-10-26 10:41 | Discharge Summary ---
Date of Encounter: 10/26/16 Time of Encounter: 10:38 Diagnosis - Discharge Diagnosis (1) Bipolar disorder with psychotic features Status: Acute (2) Substance abuse Status: Chronic Medications - Discharge Medications Prescriptions: FLUoxetine HCl [Prozac] 20 mg PO DAILY #30 capsule TraZODone 50 mg PO HS #30 tablet Baclofen [Lioresal] 10 mg PO TID 10/21/16 [History] Lisinopril [Zestril] 20 mg PO HS 10/21/16 [History] Acetaminophen [Tylenol] 650 mg PO Q6HR PRN #0 tablet 10/22/16 [Rx] Nicotine Patch [Nicoderm] 21 mg TD DAILY patch.td24 10/22/16 [Rx] FLUoxetine HCl [Prozac] 20 mg PO DAILY #30 capsule 10/26/16 [Rx] TraZODone 50 mg PO HS #30 tablet 10/26/16 [Rx] Allergies No Known Allergies Allergy (Verified 09/27/16 23:57) Provider Date of admission: 10/23/16 22:13 Primary care physician: PCP NO Discharging clinician: Rodolfo Ren Assessment and Plan - Patient/Caregiver Discharge Instructions Activity: resume usual activities as tolerated Diet: regular diet - Follow up Plan Follow up with: [facility] [Outside] - 11/03/16 2:00 pm (The above appointment is with Dr. Kirkpatrick.) Ruslan Madlonado [facility] [Outside] (The above appointment is with When you come to your first appointment, you will have an orientation to the agency and you will meet with a counselor. Please bring the following with you to your first visit to the clinic: 1) proof of household income (two consecutive pay stubs, social security award letter, bank statement, statement letter from [facility] , child support statement, IRS 1040 or W2 form, or a statement from the person who financially supports you stating they help provide for your basic needs), 2 ) proof of residency (drivers license, a piece of mail showing your address, a statement from person you live with verifying you live at their address), 3) your social security card, 4) photo ID, 5) your insurance card (if you have commercial insurance you must call to obtain a prior authorization number before you arrive to your first appointment) and 6) if you do not have insurance but have applied for Medicaid, please bring verification you have applied.) Functional capacity at discharge: independent ambulation Overall status at discharge: Stable Disposition: Home, Self-Care Hospital Course Hospital course: Mr. Cisse is a 35 year old male admitted from the medical floor after an overdose in a suicide attempt. For details admission please see H&P On the units patient was evaluated, he was started on fluoxetine 20 mg daily and trazodone at bedtime. He reported improved sleep and less depressed. He participated in group activities and was interested and self-help and handouts. He was motivated to continue counseling and medication after discharge. He denied any suicidal ideation and was medically stable. His discharge plans and follow-up were completed by the social services designee. - Time Spent with Patient Total time spent providing and/or coordinating discharge services: Greater than 30 minutes Quality - Multiple Antipsychotics Patient discharged on 2 or more antipsychotic medications: No Procedures - Procedures Procedures: Medication Management, Crisis Stabilization, Supportive Therapy, Group Therapy, Psychoeducational Therapy Mental Status Exam - Mental Status Exam Patient orientation: Yes Person, Yes Time, Yes Place Level of alertness: Alert Patient appearance: Appropriate, Well Groomed, Obese Behavior: calm, cooperative Psychomotor activity: Normal Eye contact: Maintains Eye Contact Mood description: Euthymic/stable Affect description: congruent with mood, full range Speech pattern: Normal rate, Normal rhythm, Normal tone Speech Volume: Normal Thought process: Linear, Goal Oriented Thought Content: No Suicidal ideation, No Homicidal ideation, No Overt delusions Perceptual Disturbances: No Auditory hallucinations, No Visual hallucinations Judgment: Limited Insight: Partial
== END 2016-10-26 11:30 | disposition home or self-care (01) | DRG 812 ==
LOC: 1ANU 22:13
PROVIDERS: ADMIT Psychiatry & Neurology Psychiatry; ATTEND Psychiatry & Neurology Psychiatry

== ENCOUNTER 2019-01-03 21:55 | Observation (INO) ==
[2019-01-03 22:30] LABS: Basophils % 0.1 %; Eosinophils # 0.1 K/mcL (0.0-0.6); Eosinophils % 1.7 %; Hemoglobin 12.5 g/dL (12.9-16.9); Immature Granulocytes % 0.4 % (0-4); Lymphocytes # 1.4 K/mcL (0.6-4.6); Lymphocytes % 18.3 %; Mean Corpuscular HGB Conc 34.7 g/dL (31.6-35.5); Mean Corpuscular Hemoglobin 31.7 pg (28.0-33.3); Mean Corpuscular Volume 91.4 fL (83.0-100.0); Mean Platelet Volume 10.4 fL (9.4-12.4); Monocytes # 0.7 K/mcL (0.0-1.3); Monocytes % 8.9 %; Neutrophils # 5.3 K/mcL (1.6-8.9); Platelet Count 165 K/mcL (140-400); Red Blood Count 3.94 M/mcL (4.19-5.50); Red Cell Distribution Width 13.2 % (11.5-14.5); Segmented Neutrophils % 70.6 %; White Blood Count 7.5 K/mcL (4.3-11.1)
[2019-01-03 22:49] LABS: Acetaminophen < 10 mcg/mL (10-20); Blood Urea Nitrogen 10 mg/dL (6-20); Carbon Dioxide 26 mEq/L (23-29); Chloride 104 mEq/L (98-107); Ethanol < 10 mg/dL (Less than 10); Glucose 105 mg/dL (70-105); Osmolality,Calculated 285 (280-300); Potassium 3.1 mEq/L (3.5-5.1); Salicylate < 2.5 mg/dL (15.0-30.0); Sodium 138 mEq/L (136-145)
--- NOTE | 2019-01-03 22:52 | Emergency Department Note ---
Disposition Clinical Impression: Suicidal ideation, Tinea cruris, Methamphetamine intoxication Disposition: Still a Patient Condition: Fair Referrals: NONE,PCP [Primary Care Provider] - Forms: ED Satisfaction Letter Time of Disposition: 01:00 Psych HPI - General Chief Complaint: ED Psychiatric Symptoms Stated Complaint: SI Time Seen by Provider: 01/03/19 22:02 Source: EMS Mode of arrival: ambulatory Limitations: no limitations Nursing Notes Reviewed: Yes Vital Signs Reviewed: Yes - History of Present Illness HPI Narrative: 38-year-old male presents to the emergency department complaining of suicidal ideations. Patient did admit to using heroin as well as methamphetamine and snorting Xanax. He also said that he went to the methadone clinic today to get his first dose and took it and then later this evening he got a dose for tomorrow as tomorrow is a holiday and decided take that tonight as well. He said that he got into a large fight with his mom over money issues she was unable to give him money so he said he walked to the fire station. At that time he said he became very depressed and thought about slitting his throat. Went to the fire station as blood pressure checked and told them that he was considering slitting his throat with his knife. He never exceeded slit his throat but did think about it. He does have history of suicidal ideations as well as depression has been admitted multiple times to a psychiatric facility for the suicidal ideations. Patient otherwise has no other complaints at this time. He is complaining of left ankle pain. Said it may have been sprained but otherwise having no other complaints. He stated did not fall or have any trauma just stepped on it wrong. - Related Data Home Medications Medication Instructions Recorded Confirmed Baclofen [Lioresal] 10 mg PO TID 10/21/16 10/24/16 Lisinopril [Zestril] 20 mg PO HS 10/21/16 10/24/16 Previous Rx's Medication Instructions Recorded traZODone [TraZODone] 50 mg PO HS #30 tablet 10/26/16 Ciprofloxacin [Cipro] 500 mg PO BID #14 tablet 09/08/17 Phenazopyridine HCl [Pyridium] 200 mg PO TID #6 tab 09/08/17 Cyclobenzaprine [Flexeril] 10 mg PO TID #15 tablet 01/27/18 HYDROcodone/Acet 5/325 mg [[place] 1 tab PO Q6H PRN 2 Days #8 tab 01/27/18 5-325 mg] Lidocaine Patch [Lidoderm 5% patch] 1 each TP DAILY #7 adh..patch 01/27/18 Permethrin [Bedding Premium] 142 gm MC ONCE #1 spray 03/15/18 Permethrin [Elimite] 60 appl TP ONCE #2 cream..g. 03/15/18 Permethrin [Nix Complete] 324.86 ml MC ONCE #1 combo..pkg 03/15/18 Clotrimazole 1% CRM [Lotrimin 1%] 1 appl TP BID #1 tube 03/25/18 Mupirocin [Bactroban Oint] 1 appl TP TID #1 tube 03/25/18 Sulfamethoxazole/Trimeth DS 1 each PO BID 10 Days tablet 03/25/18 [Bactrim DS] Lisinopril [Zestril] 20 mg PO DAILY #30 tablet 09/22/18 Allergies Allergy/AdvReac Type Severity Reaction Status Date / Time No Known Allergies Allergy Verified 09/22/18 20:31 All systems ED: reviewed and negative except as stated. Review of Systems: As Per HPI Past Medical History - Past Medical History Attestation: Yes The following information was validated with the patient. Source: patient Medical history: Reports: hypertension, other Surgical history: Reports: non-contributory Psychiatric history: Reports: depression, PTSD - Social History Smoking Status: Current every day smoker Smokeless Tobacco Status: No Alcohol use: Reports: rarely Drug use: Reports: opiates, methamphetamine, IV Drug Use, prescription drug abuse Physical Exam - General Limitations: no limitations General appearance: alert, anxious - Head Head exam: atraumatic, normocephalic, normal inspection - Eye Eye exam: Present: normal appearance, PERRL, EOMI - ENT ENT exam: normal exam, normal oropharynx, mucous membranes moist - Neck Neck exam: Present: normal inspection, full ROM, trachea midline - Chest Chest inspection: Present: normal inspection, symmetric chest wall rise - Respiratory Respiratory exam: Present: normal lung sounds bilaterally - Cardiovascular Cardiovascular exam: Present: regular rate, normal rhythm, normal heart sounds - Abdominal Exam Abdominal exam: Present: soft, Non-Tender. Absent: tenderness, distention, guarding, rebound, rigidity - Extremities Exam Extremities exam: Present: normal inspection, full ROM. Absent: tenderness, pedal edema - Expanded Lower Extremity Exam Hip/Pelvis exam: Present: normal inspection, full ROM Upper leg exam: Present: normal inspection, full ROM Knee exam: Present: normal inspection, full ROM Lower leg exam: Present: normal inspection, full ROM Ankle exam: Present: normal inspection, full ROM, tenderness (While palpating the lateral portion of the ankle.), swelling (Very mild circumferentially around the ankle) Foot/toe exam: Present: normal inspection, full ROM Neurovascular/Tendon exam: Absent: motor deficit, sensory deficit, tendon deficit - Back Exam Back exam: Present: normal inspection, full ROM. Absent: tenderness, CVA tenderness (R), CVA tenderness (L) - Neurological Exam Neurological exam: Present: alert, oriented X3 - Skin Skin exam: Present: warm, dry, intact, normal color Course Course Narrative: Will do labs to medically clear the patient as well as get urinalysis will also get a x-ray of the ankle due to the pain. Patient cared this plan. Disposition pending results. We will consult one a once patient is medically cleared Vital Signs Temperature 98.5 F 01/03/19 21:57 Pulse Rate 111 01/03/19 21:57 Respiratory Rate 22 01/03/19 21:57 Blood Pressure 145/61 01/03/19 21:57 O2 Sat by Pulse Oximetry 97 01/03/19 21:57 Temperature 98.5 F 01/03/19 21:57 Pulse Rate 111 01/03/19 21:57 Respiratory Rate 22 01/03/19 21:57 Blood Pressure 145/61 01/03/19 21:57 O2 Sat by Pulse Oximetry 97 01/03/19 21:57 Oxygen Delivery Oxygen Delivery Room Air Psych - [facility] Narrative Medical decision making narrative: She is medically cleared. We will consult 1A for further evaluation for plan and disposition. Patient will be signed out to Dr. Vicente and Dr. Quijano . Please refer to their note for further disposition and plan Ankle X-Ray 01/03/19 22:16 IMPRESSION: No acute abnormality of the ankle. D/ / Chuy Freedman MD / Chuy Freedman MD Interpreting Provider: Chuy Freedman MD - Lab Data Result diagrams: 01/03/19 22:16 01/03/19 22:16 Lab Results 01/03/19 01/03/19 01/03/19 Range/Units 22:16 22:16 23:45 WBC 7.5 (4.3-11.1) K/mcL RBC 3.94 L (4.19-5.50) M/mcL Hgb 12.5 L (12.9-16.9) g/dL Hct 36.0 L (37.5-50.1) % MCV 91.4 (83.0-100.0) fL MCH 31.7 (28.0-33.3) pg MCHC 34.7 (31.6-35.5) g/dL RDW 13.2 (11.5-14.5) % Plt Count 165 (140-400) K/mcL MPV 10.4 (9.4-12.4) fL Immature Gran % 0.4 (0-4) % Seg Neutrophils % 70.6 % Lymphocytes % 18.3 % Monocytes % 8.9 % Eosinophils % 1.7 % Basophils % 0.1 % Neutrophils # 5.3 (1.6-8.9) K/mcL Lymphocytes # 1.4 (0.6-4.6) K/mcL Monocytes # 0.7 (0.0-1.3) K/mcL Eosinophils # 0.1 (0.0-0.6) K/mcL Basophils # 0.0 (0.0-0.2) K/mcL Sodium 138 (136-145) mEq/L Potassium 3.1 L (3.5-5.1) mEq/L Chloride 104 (98-107) mEq/L Carbon Dioxide 26 (23-29) mEq/L BUN 10 (6-20) mg/dL Creatinine 0.71 (0.70-1.30) mg/dL Est GFR ( Amer) > 60 (> 60) Est GFR (Non-Af Amer) > 60 (> 60) BUN/Creatinine Ratio 14 (6-26) Glucose 105 (70-105) mg/dL Calculated Osmolality 285 (280-300) Calcium 9.0 (8.6-10.3) mg/dL Urine Color Dark Yellow (Yellow) Urine Clarity Clear (Clear) Urine pH 5.5 (5.0-8.0) pH Units Ur Specific [place] > 1.030 H (1.010-1.025) Urine Protein 30 H (Neg-Trace) mg/dL Urine Glucose (UA) Normal (Normal) mg/dL Urine Ketones Negative (Negative) mg/dL Urine Blood Negative (Negative) Urine Nitrite Negative (Negative) Urine Bilirubin Small H (Negative) Urine Urobilinogen 2.0 H (Normal) mg/dL Ur Leukocyte Esterase Negative (Negative) Urine Microscopic RBC 0-3 (0-3) per hpf Urine Microscopic WBC 3-5 H (0-3) per hpf Ur Squamous Epith Cells Many H (None-Few) per lpf Calcium Oxalate Crystal Present Urine Bacteria None Seen (None-Few) per hpf Hyaline Casts Few (None-Few) per lpf Urine Mucus Few (Few) Salicylates < 2.5 L (15.0-30.0) mg/dL Urine Opiates Screen (Clfkad=870) ng/mL Ur Buprenorphine Scrn (Cutoff=5) ng/mL Acetaminophen < 10 L (10-20) mcg/mL Ur Barbiturates Screen (Zctqmg=975) ng/mL Ur Phencyclidine Scrn (Cutoff=25) ng/mL Ur Amphetamines Screen (Ewaexk=7520) ng/mL U Benzodiazepines Scrn (Wivypw=182) ng/mL Urine Cocaine Screen (Cutoff= 300) ng/mL U Marijuana (THC) Screen (Cutoff = 50) ng/mL Ur Drug Screen Interp Ethyl Alcohol < 10 (Less than 10) mg/dL 01/03/19 Range/Units 23:45 WBC (4.3-11.1) K/mcL RBC (4.19-5.50) M/mcL Hgb (12.9-16.9) g/dL Hct (37.5-50.1) % MCV (83.0-100.0) fL MCH (28.0-33.3) pg MCHC (31.6-35.5) g/dL RDW (11.5-14.5) % Plt Count (140-400) K/mcL MPV (9.4-12.4) fL Immature Gran % (0-4) % Seg Neutrophils % % Lymphocytes % % Monocytes % % Eosinophils % % Basophils % % Neutrophils # (1.6-8.9) K/mcL Lymphocytes # (0.6-4.6) K/mcL Monocytes # (0.0-1.3) K/mcL Eosinophils # (0.0-0.6) K/mcL Basophils # (0.0-0.2) K/mcL Sodium (136-145) mEq/L Potassium (3.5-5.1) mEq/L Chloride (98-107) mEq/L Carbon Dioxide (23-29) mEq/L BUN (6-20) mg/dL Creatinine (0.70-1.30) mg/dL Est GFR ( Amer) (> 60) Est GFR (Non-Af Amer) (> 60) BUN/Creatinine Ratio (6-26) Glucose (70-105) mg/dL Calculated Osmolality (280-300) Calcium (8.6-10.3) mg/dL Urine Color (Yellow) Urine Clarity (Clear) Urine pH (5.0-8.0) pH Units Ur Specific [place] (1.010-1.025) Urine Protein (Neg-Trace) mg/dL Urine Glucose (UA) (Normal) mg/dL Urine Ketones (Negative) mg/dL Urine Blood (Negative) Urine Nitrite (Negative) Urine Bilirubin (Negative) Urine Urobilinogen (Normal) mg/dL Ur Leukocyte Esterase (Negative) Urine Microscopic RBC (0-3) per hpf Urine Microscopic WBC (0-3) per hpf Ur Squamous Epith Cells (None-Few) per lpf Calcium Oxalate Crystal Urine Bacteria (None-Few) per hpf Hyaline Casts (None-Few) per lpf Urine Mucus (Few) Salicylates (15.0-30.0) mg/dL Urine Opiates Screen Negative (Wwlyxm=046) ng/mL Ur Buprenorphine Scrn Negative (Cutoff=5) ng/mL Acetaminophen (10-20) mcg/mL Ur Barbiturates Screen Negative (Wzujsw=196) ng/mL Ur Phencyclidine Scrn Negative (Cutoff=25) ng/mL Ur Amphetamines Screen Positive H (Odsero=4515) ng/mL U Benzodiazepines Scrn Negative (Evdcrq=230) ng/mL Urine Cocaine Screen Positive H (Cutoff= 300) ng/mL U Marijuana (THC) Screen Positive H (Cutoff = 50) ng/mL Ur Drug Screen Interp See Below Ethyl Alcohol (Less than 10) mg/dL Psychiatric Medical Clearance - Medical Clearance Checklist Medical History: No Social History Section defined Current Vitals: Last Vital Signs Temp 98.5 F 01/03/19 21:57 Pulse 111 01/03/19 21:57 Resp 22 01/03/19 21:57 BP 145/61 01/03/19 21:57 Pulse Ox 97 01/03/19 21:57 Psychiatric Lab Panel: Drug Levels and Toxicity 01/03/19 01/03/19 22:16 23:45 Urine Opiates Screen Negative Acetaminophen < 10 L Ur Barbiturates Screen Negative Ur Phencyclidine Scrn Negative Ur Amphetamines Screen Positive H U Benzodiazepines Scrn Negative Urine Cocaine Screen Positive H U Marijuana (THC) Screen Positive H Ethyl Alcohol < 10 Abnormal Labs: Abnormal lab results RBC 3.94 M/mcL (4.19-5.50) L 01/03/19 22:16 Hgb 12.5 g/dL (12.9-16.9) L 01/03/19 22:16 Hct 36.0 % (37.5-50.1) L 01/03/19 22:16 Potassium 3.1 mEq/L (3.5-5.1) L 01/03/19 22:16 Ur Specific [place] > 1.030 (1.010-1.025) H 01/03/19 23:45 30 mg/dL (Neg-Trace) H 01/03/19 23:45 Small (Negative) H 01/03/19 23:45 2.0 mg/dL (Normal) H 01/03/19 23:45 3-5 per hpf (0-3) H 01/03/19 23:45 Ur Squamous Epith Cells Many per lpf (None-Few) H 01/03/19 23:45 Salicylates < 2.5 mg/dL (15.0-30.0) L 01/03/19 22:16 Acetaminophen < 10 mcg/mL (10-20) L 01/03/19 22:16 Ur Amphetamines Screen Positive ng/mL (Gjrbxu=1644) H 01/03/19 23:45 Positive ng/mL (Cutoff= 300) H 01/03/19 23:45 U Marijuana (THC) Screen Positive ng/mL (Cutoff = 50) H 01/03/19 23:45 Statement of Medical Clearance: I have evaluated the patient, reviewed diagnostic information, and certify that the patient's medical condition is sufficiently stable that transfer to the psychiatric unit does not pose a significant risk of deterioration.
[2019-01-03 22:54] LABS: BUN/Creatinine Ratio 14 (6-26); eGFR For African Americans > 60 (> 60); eGFR For Non-African Americans > 60 (> 60)
[2019-01-03] MEDS ORDERED: *HR* LORazepam 0.5 MG TABLET PO ONE (22:58)
[2019-01-03] MEDS ORDERED: Ketoconazole 2% CRM 15 GM TUBE TP STA (23:04)
--- NOTE | 2019-01-03 23:06 | Emergency Department Note ---
Disposition Clinical Impression: Suicidal ideation, Tinea cruris, Methamphetamine intoxication Disposition: Still a Patient Condition: Fair Referrals: NONE,PCP [Primary Care Provider] - Forms: ED Satisfaction Letter Time of Disposition: 01:00 General Adult HPI - General Chief complaint: ED Psychiatric Symptoms Stated complaint: SI Time Seen by Provider: 01/03/19 22:02 Source: EMS Mode of arrival: ambulatory Limitations: no limitations - History of Present Illness Pain Scale: 0 - Related Data Home Medications Medication Instructions Recorded Confirmed Baclofen [Lioresal] 10 mg PO TID 10/21/16 10/24/16 Lisinopril [Zestril] 20 mg PO HS 10/21/16 10/24/16 Previous Rx's Medication Instructions Recorded traZODone [TraZODone] 50 mg PO HS #30 tablet 10/26/16 Ciprofloxacin [Cipro] 500 mg PO BID #14 tablet 09/08/17 Phenazopyridine HCl [Pyridium] 200 mg PO TID #6 tab 09/08/17 Cyclobenzaprine [Flexeril] 10 mg PO TID #15 tablet 01/27/18 HYDROcodone/Acet 5/325 mg [[place] 1 tab PO Q6H PRN 2 Days #8 tab 01/27/18 5-325 mg] Lidocaine Patch [Lidoderm 5% patch] 1 each TP DAILY #7 adh..patch 01/27/18 Permethrin [Bedding [place]] 142 gm MC ONCE #1 spray 03/15/18 Permethrin [Elimite] 60 appl TP ONCE #2 cream..g. 03/15/18 Permethrin [Nix Complete] 324.86 ml MC ONCE #1 combo..pkg 03/15/18 Clotrimazole 1% CRM [Lotrimin 1%] 1 appl TP BID #1 tube 03/25/18 Mupirocin [Bactroban Oint] 1 appl TP TID #1 tube 03/25/18 Sulfamethoxazole/Trimeth DS 1 each PO BID 10 Days tablet 03/25/18 [Bactrim DS] Lisinopril [Zestril] 20 mg PO DAILY #30 tablet 09/22/18 Allergies Allergy/AdvReac Type Severity Reaction Status Date / Time No Known Allergies Allergy Verified 09/22/18 20:31 Past Medical History - Past Medical History Medical history: Reports: hypertension, other Surgical history: Reports: non-contributory Psychiatric history: Reports: depression, PTSD - Social History Smoking Status: Current every day smoker Smokeless Tobacco Status: No Alcohol use: Reports: rarely Drug use: Reports: opiates, methamphetamine, IV Drug Use, prescription drug abuse Physical Exam - General Limitations: no limitations General appearance: alert, anxious Course Vital Signs Temperature 98.5 F 01/03/19 21:57 Pulse Rate 111 01/03/19 21:57 Respiratory Rate 22 01/03/19 21:57 Blood Pressure 145/61 01/03/19 21:57 O2 Sat by Pulse Oximetry 97 01/03/19 21:57 Temperature 98.5 F 01/03/19 21:57 Pulse Rate 111 01/03/19 21:57 Respiratory Rate 22 01/03/19 21:57 Blood Pressure 145/61 01/03/19 21:57 O2 Sat by Pulse Oximetry 97 01/03/19 21:57 Oxygen Delivery Oxygen Delivery Room Air Medical Decision Making - Lab Data Result diagrams: 01/03/19 22:16 01/03/19 22:16 Lab Results 01/03/19 01/03/19 Range/Units 22:16 22:16 WBC 7.5 (4.3-11.1) K/mcL RBC 3.94 L (4.19-5.50) M/mcL Hgb 12.5 L (12.9-16.9) g/dL Hct 36.0 L (37.5-50.1) % MCV 91.4 (83.0-100.0) fL MCH 31.7 (28.0-33.3) pg MCHC 34.7 (31.6-35.5) g/dL RDW 13.2 (11.5-14.5) % Plt Count 165 (140-400) K/mcL MPV 10.4 (9.4-12.4) fL Immature Gran % 0.4 (0-4) % Seg Neutrophils % 70.6 % Lymphocytes % 18.3 % Monocytes % 8.9 % Eosinophils % 1.7 % Basophils % 0.1 % Neutrophils # 5.3 (1.6-8.9) K/mcL Lymphocytes # 1.4 (0.6-4.6) K/mcL Monocytes # 0.7 (0.0-1.3) K/mcL Eosinophils # 0.1 (0.0-0.6) K/mcL Basophils # 0.0 (0.0-0.2) K/mcL Sodium 138 (136-145) mEq/L Potassium 3.1 L (3.5-5.1) mEq/L Chloride 104 (98-107) mEq/L Carbon Dioxide 26 (23-29) mEq/L BUN 10 (6-20) mg/dL Creatinine 0.71 (0.70-1.30) mg/dL Est GFR ( Amer) > 60 (> 60) Est GFR (Non-Af Amer) > 60 (> 60) BUN/Creatinine Ratio 14 (6-26) Glucose 105 (70-105) mg/dL Calculated Osmolality 285 (280-300) Calcium 9.0 (8.6-10.3) mg/dL Salicylates < 2.5 L (15.0-30.0) mg/dL Acetaminophen < 10 L (10-20) mcg/mL Ethyl Alcohol < 10 (Less than 10) mg/dL Attestation Statement - Attestation Attestation: I examined this patient and my medical decision-making was reviewed with the Resident Physician. I agree with the documented findings, disposition and treatment plan as described except to the extent set forth below. Patient attends the methadone clinic and says that he relapsed over a disagreement with his mother. Admits to having a friend inject him with heroin and methamphetamine today. Presents with symptoms consistent with metha mphetamine intoxication. Also complains of a rash in his groin, on my inspection it is consistent with a severe case of tinea cruris. Also complains some ankle pain, Dr. Ramos's order an x-ray. We will give some Ativan for his agitation, and start therapy for his tinea with Ketoconazole cream. Psychiatric evaluation will be required.
[2019-01-03 23:54] LABS: Bilirubin,Urine Small (Negative); Blood,Urine Negative (Negative); Clarity,Urine Clear (Clear); Color,Urine Dark Yellow (Yellow); Glucose,Urine (UA) Normal (Normal); Ketones,Urine Negative (Negative); Leukocyte Esterase,Urine Negative (Negative); Nitrite,Urine Negative (Negative); PH,Urine 5.5 pH Units (5.0-8.0); Protein,Urine 30 mg/dL (Neg-Trace); Specific Gravity,Urine > 1.030 (1.010-1.025)
[2019-01-03 23:56] LABS: Bacteria,Urine None Seen per hpf (None-Few); Hyaline Casts,Urine Few per lpf (None-Few); RBC,Urine 0-3 per hpf (0-3); Squamous Epithelial Cell,Urine Many per lpf (None-Few)
[2019-01-04 00:06] LABS: Amphetamine Screen,Urine Positive ng/mL (Cutoff=1000); Barbiturate Screen,Urine Negative ng/mL (Cutoff=200); Benzodiazepines Screen,Urine Negative ng/mL (Cutoff=200); Cannabinoid Screen,Urine Positive ng/mL (Cutoff = 50); Cocaine Screen,Urine Positive ng/mL (Cutoff= 300); Opiate Screen,Urine Negative ng/mL (Cutoff=300); Phencyclidine Screen,Urine Negative ng/mL (Cutoff=25)
[2019-01-04 00:08] LABS: Calcium Oxalate Crystals,Urine Present; Mucus,Urine Few (Few)
--- NOTE | 2019-01-04 03:19 | Emergency Department Note ---
Disposition Clinical Impression: Suicidal ideation, Tinea cruris, Methamphetamine intoxication Disposition: Admitted As Inpatient Condition: Fair Referrals: NONE,PCP [Primary Care Provider] - Forms: ED Satisfaction Letter Time of Disposition: 03:19 General Adult HPI - General Chief complaint: ED Psychiatric Symptoms Stated complaint: SI Time Seen by Provider: 01/03/19 22:02 Source: EMS Mode of arrival: ambulatory Limitations: no limitations - History of Present Illness Pain Scale: 0 - Related Data Home Medications Medication Instructions Recorded Confirmed Baclofen [Lioresal] 10 mg PO TID 10/21/16 10/24/16 Lisinopril [Zestril] 20 mg PO HS 10/21/16 10/24/16 Previous Rx's Medication Instructions Recorded traZODone [TraZODone] 50 mg PO HS #30 tablet 10/26/16 Ciprofloxacin [Cipro] 500 mg PO BID #14 tablet 09/08/17 Phenazopyridine HCl [Pyridium] 200 mg PO TID #6 tab 09/08/17 Cyclobenzaprine [Flexeril] 10 mg PO TID #15 tablet 01/27/18 HYDROcodone/Acet 5/325 mg [Williams 1 tab PO Q6H PRN 2 Days #8 tab 01/27/18 5-325 mg] Lidocaine Patch [Lidoderm 5% patch] 1 each TP DAILY #7 adh..patch 01/27/18 Permethrin [Bedding [place]] 142 gm MC ONCE #1 spray 03/15/18 Permethrin [Elimite] 60 appl TP ONCE #2 cream..g. 03/15/18 Permethrin [Nix Complete] 324.86 ml MC ONCE #1 combo..pkg 03/15/18 Clotrimazole 1% CRM [Lotrimin 1%] 1 appl TP BID #1 tube 03/25/18 Mupirocin [Bactroban Oint] 1 appl TP TID #1 tube 03/25/18 Sulfamethoxazole/Trimeth DS 1 each PO BID 10 Days tablet 03/25/18 [Bactrim DS] Lisinopril [Zestril] 20 mg PO DAILY #30 tablet 09/22/18 Allergies Allergy/AdvReac Type Severity Reaction Status Date / Time No Known Allergies Allergy Verified 09/22/18 20:31 Past Medical History - Past Medical History Medical history: Reports: hypertension, other Surgical history: Reports: non-contributory Psychiatric history: Reports: depression, PTSD - Social History Smoking Status: Current every day smoker Smokeless Tobacco Status: No Alcohol use: Reports: rarely Drug use: Reports: opiates, methamphetamine, IV Drug Use, prescription drug abuse Physical Exam - General Limitations: no limitations General appearance: alert, anxious Course Course Narrative: This patient was signed out to me at shift change from Dr. Ramos and Dr. De La Cruz. Please refer to their notes for complete details of the history and physical examination. Patient presented with some suicidal ideation. At shift change he has been medically cleared and is awaiting psychiatric evaluation. Patient was evaluated in the emergency department by the [address] psychiatry department and after evaluation patient is being admitted to the [address] psychiatric unit. Vital Signs Temperature 98.5 F 01/03/19 21:57 Pulse Rate 111 01/03/19 21:57 Respiratory Rate 22 01/03/19 21:57 Blood Pressure 145/61 01/03/19 21:57 O2 Sat by Pulse Oximetry 97 01/03/19 21:57 Temperature 98.5 F 01/03/19 21:57 Pulse Rate 111 01/03/19 21:57 Respiratory Rate 22 01/03/19 21:57 Blood Pressure 145/61 01/03/19 21:57 O2 Sat by Pulse Oximetry 97 01/03/19 21:57 Oxygen Delivery Oxygen Delivery Room Air Medical Decision Making - Lab Data Result diagrams: 01/03/19 22:16 01/03/19 22:16 Lab Results 01/03/19 01/03/19 01/03/19 Range/Units 22:16 22:16 23:45 WBC 7.5 (4.3-11.1) K/mcL RBC 3.94 L (4.19-5.50) M/mcL Hgb 12.5 L (12.9-16.9) g/dL Hct 36.0 L (37.5-50.1) % MCV 91.4 (83.0-100.0) fL MCH 31.7 (28.0-33.3) pg MCHC 34.7 (31.6-35.5) g/dL RDW 13.2 (11.5-14.5) % Plt Count 165 (140-400) K/mcL MPV 10.4 (9.4-12.4) fL Immature Gran % 0.4 (0-4) % Seg Neutrophils % 70.6 % Lymphocytes % 18.3 % Monocytes % 8.9 % Eosinophils % 1.7 % Basophils % 0.1 % Neutrophils # 5.3 (1.6-8.9) K/mcL Lymphocytes # 1.4 (0.6-4.6) K/mcL Monocytes # 0.7 (0.0-1.3) K/mcL Eosinophils # 0.1 (0.0-0.6) K/mcL Basophils # 0.0 (0.0-0.2) K/mcL Sodium 138 (136-145) mEq/L Potassium 3.1 L (3.5-5.1) mEq/L Chloride 104 (98-107) mEq/L Carbon Dioxide 26 (23-29) mEq/L BUN 10 (6-20) mg/dL Creatinine 0.71 (0.70-1.30) mg/dL Est GFR ( Amer) > 60 (> 60) Est GFR (Non-Af Amer) > 60 (> 60) BUN/Creatinine Ratio 14 (6-26) Glucose 105 (70-105) mg/dL Calculated Osmolality 285 (280-300) Calcium 9.0 (8.6-10.3) mg/dL Urine Color Dark Yellow (Yellow) Urine Clarity Clear (Clear) Urine pH 5.5 (5.0-8.0) pH Units Ur Specific [place] > 1.030 H (1.010-1.025) Urine Protein 30 H (Neg-Trace) mg/dL Urine Glucose (UA) Normal (Normal) mg/dL Urine Ketones Negative (Negative) mg/dL Urine Blood Negative (Negative) Urine Nitrite Negative (Negative) Urine Bilirubin Small H (Negative) Urine Urobilinogen 2.0 H (Normal) mg/dL Ur Leukocyte Esterase Negative (Negative) Urine Microscopic RBC 0-3 (0-3) per hpf Urine Microscopic WBC 3-5 H (0-3) per hpf Ur Squamous Epith Cells Many H (None-Few) per lpf Calcium Oxalate Crystal Present Urine Bacteria None Seen (None-Few) per hpf Hyaline Casts Few (None-Few) per lpf Urine Mucus Few (Few) Salicylates < 2.5 L (15.0-30.0) mg/dL Urine Opiates Screen (Votgvj=917) ng/mL Ur Buprenorphine Scrn (Cutoff=5) ng/mL Acetaminophen < 10 L (10-20) mcg/mL Ur Barbiturates Screen (Kkrvbw=962) ng/mL Ur Phencyclidine Scrn (Cutoff=25) ng/mL Ur Amphetamines Screen (Gkdwct=0763) ng/mL U Benzodiazepines Scrn (Lsgpzm=465) ng/mL Urine Cocaine Screen (Cutoff= 300) ng/mL U Marijuana (THC) Screen (Cutoff = 50) ng/mL Ur Drug Screen Interp Ethyl Alcohol < 10 (Less than 10) mg/dL 01/03/19 Range/Units 23:45 WBC (4.3-11.1) K/mcL RBC (4.19-5.50) M/mcL Hgb (12.9-16.9) g/dL Hct (37.5-50.1) % MCV (83.0-100.0) fL MCH (28.0-33.3) pg MCHC (31.6-35.5) g/dL RDW (11.5-14.5) % Plt Count (140-400) K/mcL MPV (9.4-12.4) fL Immature Gran % (0-4) % Seg Neutrophils % % Lymphocytes % % Monocytes % % Eosinophils % % Basophils % % Neutrophils # (1.6-8.9) K/mcL Lymphocytes # (0.6-4.6) K/mcL Monocytes # (0.0-1.3) K/mcL Eosinophils # (0.0-0.6) K/mcL Basophils # (0.0-0.2) K/mcL Sodium (136-145) mEq/L Potassium (3.5-5.1) mEq/L Chloride (98-107) mEq/L Carbon Dioxide (23-29) mEq/L BUN (6-20) mg/dL Creatinine (0.70-1.30) mg/dL Est GFR ( Amer) (> 60) Est GFR (Non-Af Amer) (> 60) BUN/Creatinine Ratio (6-26) Glucose (70-105) mg/dL Calculated Osmolality (280-300) Calcium (8.6-10.3) mg/dL Urine Color (Yellow) Urine Clarity (Clear) Urine pH (5.0-8.0) pH Units Ur Specific [place] (1.010-1.025) Urine Protein (Neg-Trace) mg/dL Urine Glucose (UA) (Normal) mg/dL Urine Ketones (Negative) mg/dL Urine Blood (Negative) Urine Nitrite (Negative) Urine Bilirubin (Negative) Urine Urobilinogen (Normal) mg/dL Ur Leukocyte Esterase (Negative) Urine Microscopic RBC (0-3) per hpf Urine Microscopic WBC (0-3) per hpf Ur Squamous Epith Cells (None-Few) per lpf Calcium Oxalate Crystal Urine Bacteria (None-Few) per hpf Hyaline Casts (None-Few) per lpf Urine Mucus (Few) Salicylates (15.0-30.0) mg/dL Urine Opiates Screen Negative (Swzxft=486) ng/mL Ur Buprenorphine Scrn Negative (Cutoff=5) ng/mL Acetaminophen (10-20) mcg/mL Ur Barbiturates Screen Negative (Zjkffk=257) ng/mL Ur Phencyclidine Scrn Negative (Cutoff=25) ng/mL Ur Amphetamines Screen Positive H (Zrqqdd=6770) ng/mL U Benzodiazepines Scrn Negative (Pifrgl=733) ng/mL Urine Cocaine Screen Positive H (Cutoff= 300) ng/mL U Marijuana (THC) Screen Positive H (Cutoff = 50) ng/mL Ur Drug Screen Interp See Below Ethyl Alcohol (Less than 10) mg/dL
[2019-01-04] MEDS ORDERED: MOM Conc 10 ML UD.LIQ PO PRN (03:53)
[2019-01-04] MEDS ORDERED: Mag Hydrox/Al Hydrox/Simeth 30 ML UDC PO PRN (03:53)
[2019-01-04] MEDS ORDERED: *HR* LORazepam 1 MG TABLET PO PRN (03:53)
[2019-01-04] MEDS ORDERED: hydrOXYzine pamoate 25 MG CAPSULE PO PRN (03:53)
[2019-01-04] MEDS ORDERED: Haloperidol Lactate 5 MG/ML VIAL IM PRN (03:53)
[2019-01-04] MEDS ORDERED: *HR* LORazepam 2 MG/ML VIAL IM PRN (03:53)
[2019-01-04] MEDS: Ibuprofen 400 MG TABLET PO PRN ×2 (05:14→20:36)
[2019-01-04] MEDS: Nicotine 21 MG PATCH.TD24 TD SCH ×2 (11:35→13:37)
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
[2019-01-04] MEDS ORDERED: Ondansetron ODT 4 MG TAB.RAPDIS SL PRN (12:52)
[2019-01-04] MEDS ORDERED: cloNIDine HCl 0.1 MG TABLET PO PRN (12:52)
[2019-01-04] MEDS: Lisinopril 20 MG TABLET PO SCH (13:37)
[2019-01-04] MEDS: traZODone 50 MG TABLET PO PRN (20:37)
[2019-01-05] MEDS: Nicotine 21 MG PATCH.TD24 TD SCH (09:25)
[2019-01-05] MEDS: FLUoxetine 20 MG CAPSULE PO SCH (09:25)
[2019-01-05] MEDS: Lisinopril 20 MG TABLET PO SCH (09:26)
--- NOTE | 2019-01-05 09:27 | Psychiatry Progress Note ---
Date of Encounter: 01/05/19 Time of Encounter: 09:20 Subjective Interval history: Mr. Cisse is a 38 year old male admitted from the ED for suicidal ideations and methamphetamine intoxication. He was seen today in his room resting comfortably. He denied any signs of withdrawal from his Methadone but did admit to fearing he might start withdrawal today at some point if he does not receive it. He denies suicidal or homicidal ideations. He states his mood today is "pretty good." He denies auditory or visual hallucinations and describes his sleep as "not too bad." He does admit to some anxiety yesterday evening but states he was able to "deal with it" and it went away. He was unable to name positive coping skills at this time. He still does not have a safe place to discharge as nursing staff reports a contentious argument with his mother on the phone yesterday which is where he had been staying on admission. He states he does not feel safe returning to his mothers house but is open to any housing placement that this staff can arrange. Review of Systems Psychiatric: Reports: depression. Denies: suicidal ideation, change in appetite, homicidal ideation, auditory hallucinations, visual hallucinations, difficulty concentrating, panic attacks Results - Vital Signs Vital Signs: Temp Pulse Resp BP Pulse Ox 98.4 F 68 16 109/66 94 01/04/19 19:54 01/04/19 19:54 01/04/19 19:54 01/04/19 19:54 01/04/19 19:54 - Impressions ITS Impressions Ankle X-Ray 01/03/19 22:16 IMPRESSION: No acute abnormality of the ankle. D/ / Chuy Freedman MD / Chuy Freedman MD Interpreting Provider: Chuy Freedman MD Assessment and Plan (1) Suicidal ideation Current visit: Yes Status: Acute Plan: Continue hospitalization, Suicide Precautions per unit protocol, Encourage participation in unit milieu, Group Therapy, Monitor sleep, Monitor appetite Additional Plan: [facility] to come and evaluate client for potential housing placement. Client still feels unsafe returning to his former housing situation and there is risk that suicidal ideations may return if he were to discharge to an unsafe environment. Risks, benefits, side effects, alternatives discussed w/pt: Yes Patient agreeable to treatment: Yes (2) Bipolar disorder in partial remission Current visit: Yes Status: Acute Plan: Continue hospitalization, Suicide Precautions per unit protocol, Encourage participation in unit milieu, Group Therapy, Monitor sleep, Monitor appetite Risks, benefits, side effects, alternatives discussed w/pt: Yes Patient agreeable to treatment: Yes Qualifiers: Most recent bipolar episode type: depressed Qualified Code(s): F31.75 - Bipolar disorder, in partial remission, most recent episode depressed Consult Discharge Plan - Plan Referrals: NONE,PCP [Primary Care Provider] - - Attending Attestation I examined this patient and my medical decision-making was reviewed with the Resident Physician. I agree with the documented findings, disposition and treatment plan as described except to the extent set forth below. Client is doing well. Stable mood. Denies SI, intent, or plan. Eating and sleeping well. No withdrawal symptoms. Methadone clinic closed for holiday yesterday but should be able to verify dose today. Stable for discharge but has no safe housing options at this point. Will make a [facility] referral today although it will likely be Tuesday before he will be assessed. Psychiatry Exam - Constitutional Vitals: Temp Pulse Resp BP Pulse Ox 98.4 F 68 16 109/66 94 01/04/19 19:54 01/04/19 19:54 01/04/19 19:54 01/04/19 19:54 01/04/19 19:54 General appearance: age & developmentally appropriate, well-groomed, well- nourished - Musculoskeletal Station: relaxed Strength & Tone: normal for patient - Psychiatric Patient Orientation: Yes Person, Yes Time, Yes Place, Yes Circumstance Level of alertness: Alert Behavior: calm, cooperative Psychomotor activity: Normal Eye Contact: Maintains Eye Contact Mood Description: Euthymic/stable Patient description of mood: "pretty good" Affect description: congruent with mood, full range Speech Volume: Normal Speech pattern: normal rate, normal rhythm, normal tone, fluent, spontaneous, appropriate Language & Vocabulary: consistent with education Thought Process: Intact, Logical, Linear Thought Content: Yes Intact, No Suicidal ideation, No Homicidal ideation, No Paranoid delusion Perceptual Disturbances: No Reacting to internal stimuli, No Auditory hallucinations, No Visual hallucinations, No Tactile hallucinations Attention Span Ability: Capable of Focused Attention Memory Description: Grossly Intact Patient Reliability: Reliable Historian Fund of knowledge: Yes average Intelligence Estimate: Below Average Judgment: Fair Insight: Minimal (Client insight in to his pattern of relapse is minimal he uses projection and fails to recognize his role in his relapse.)
[2019-01-05] MEDS: Methadone Oral Concentrate 50 MG/5 ML UDC PO SCH (12:16)
[2019-01-05] MEDS: traZODone 50 MG TABLET PO PRN (22:11)
[2019-01-06] MEDS: Methadone Oral Concentrate 50 MG/5 ML UDC PO SCH (10:33)
[2019-01-06] MEDS: Lisinopril 20 MG TABLET PO SCH (10:34)
[2019-01-06] MEDS: FLUoxetine 20 MG CAPSULE PO SCH (10:34)
[2019-01-06] MEDS: Nicotine 21 MG PATCH.TD24 TD SCH (10:35)
[2019-01-06 12:23] VITALS: BP 151/81
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
== END 2019-01-06 14:40 | disposition home or self-care (01) ==
LOC: 1ANU 21:55 → EMEROOARM 21:55 → 1ANU 01-04 03:58
PROVIDERS: ADMIT Psychiatry & Neurology Psychiatry; ATTEND Psychiatry & Neurology Psychiatry

== ENCOUNTER 2020-09-04 03:02 | Inpatient (IN) ==
[2020-09-04 04:04] LABS: Basophils % 0.2 %; Eosinophils # 0.1 K/mcL (0.0-0.6); Eosinophils % 1.4 %; Hematocrit 37.5 % (37.5-50.1); Hemoglobin 12.5 g/dL (12.9-16.9); Immature Granulocytes % 0.2 % (0-4); Lymphocytes # 1.5 K/mcL (0.6-4.6); Lymphocytes % 29.3 %; Mean Corpuscular HGB Conc 33.3 g/dL (31.6-35.5); Mean Corpuscular Hemoglobin 29.1 pg (28.0-33.3); Mean Corpuscular Volume 87.2 fL (83.0-100.0); Mean Platelet Volume 10.8 fL (9.4-12.4); Monocytes # 0.4 K/mcL (0.0-1.3); Monocytes % 8.2 %; Platelet Count 144 K/mcL (140-400); Red Cell Distribution Width 13.2 % (11.5-14.5); Segmented Neutrophils % 60.7 %
[2020-09-04 04:26] LABS: Acetaminophen < 10 mcg/mL (10-20); BUN/Creatinine Ratio 16 (6-26); Blood Urea Nitrogen 9 mg/dL (6-20); Calcium 9.2 mg/dL (8.6-10.3); Carbon Dioxide 31 mEq/L (23-29); Chloride 101 mEq/L (98-107); Ethanol < 10 mg/dL (Less than 10); Glucose 119 mg/dL (70-105); Osmolality,Calculated 284 (280-300); Potassium 3.7 mEq/L (3.5-5.1); Salicylate < 2.5 mg/dL (15.0-30.0); Sodium 137 mEq/L (136-145); eGFR For African Americans > 60 (> 60); eGFR For Non-African Americans > 60 (> 60)
[2020-09-04 04:42] LABS: Bilirubin,Urine Negative (Negative); Blood,Urine Negative (Negative); Clarity,Urine Clear (Clear); Color,Urine Yellow (Yellow); Glucose,Urine (UA) Normal (Normal); Ketones,Urine Negative (Negative); Leukocyte Esterase,Urine Negative (Negative); Nitrite,Urine Negative (Negative); Protein,Urine Trace mg/dL (Neg-Trace); Specific Gravity,Urine 1.029 (1.010-1.025); Urobilinogen,Urine >=8.0 mg/dL (Normal)
[2020-09-04 04:53] LABS: Amphetamine Screen,Urine Positive ng/mL (Cutoff=1000); Barbiturate Screen,Urine Negative ng/mL (Cutoff=200); Benzodiazepines Screen,Urine Negative ng/mL (Cutoff=200); Cannabinoid Screen,Urine Negative ng/mL (Cutoff = 50); Cocaine Screen,Urine Negative ng/mL (Cutoff= 300); Opiate Screen,Urine Negative ng/mL (Cutoff=300); Phencyclidine Screen,Urine Negative ng/mL (Cutoff=25)
[2020-09-04] MEDS ORDERED: hydrOXYzine pamoate 25 MG CAPSULE PO PRN (07:59)
[2020-09-04] MEDS ORDERED: Mag Hydrox/Al Hydrox/Simeth 30 ML UDC PO PRN (07:59)
[2020-09-04] MEDS ORDERED: *HR* LORazepam 2 MG/ML VIAL IM PRN (07:59)
[2020-09-04] MEDS ORDERED: MOM Conc 10 ML UD.LIQ PO PRN (07:59)
[2020-09-04] MEDS ORDERED: *HR* LORazepam 1 MG TABLET PO PRN (07:59)
[2020-09-04] MEDS ORDERED: traZODone 50 MG TABLET PO PRN (07:59)
[2020-09-04] MEDS ORDERED: haloperidoL 5 MG TABLET PO PRN (07:59)
[2020-09-04] MEDS ORDERED: Ibuprofen 400 MG TABLET PO PRN (07:59)
[2020-09-04] MEDS ORDERED: Haloperidol Lactate 5 MG/ML VIAL IM PRN (07:59)
[2020-09-04] MEDS: Nicotine 21 MG PATCH.TD24 TD SCH (09:00)
[2020-09-04] MEDS: FLUoxetine 20 MG CAPSULE PO SCH (11:53)
[2020-09-04] MEDS: lisinopriL 10 MG TABLET PO SCH (11:53)
[2020-09-04] MEDS ORDERED: traZODone 50 MG TABLET PO SCH (21:00)
[2020-09-05] MEDS: FLUoxetine 20 MG CAPSULE PO SCH (09:59)
[2020-09-05] MEDS: Nicotine 21 MG PATCH.TD24 TD SCH (09:59)
[2020-09-05] MEDS: lisinopriL 10 MG TABLET PO SCH (09:59)
[2020-09-05 10:01] VITALS: BP 147/87
== END 2020-09-05 10:40 | disposition home or self-care (01) | DRG 751 ==
LOC: EMEROOARM 03:02 → 1ANU 07:53
PROVIDERS: ADMIT Psychiatry & Neurology Psychiatry; ATTEND Psychiatry & Neurology Psychiatry

== ENCOUNTER 2021-10-18 21:36 | Observation (INO) ==
[2021-10-18] MEDS ORDERED: Ketorolac 30 MG/ML VIAL IVP ONE (21:56)
[2021-10-18] MEDS ORDERED: Isovue-370 500 ML BOTTLE IVP ONE (21:56)
[2021-10-18 23:09] LABS: Basophils % 0.5 %; Eosinophils # 0.1 K/mcL (0.0-0.6); Eosinophils % 2.1 %; Hematocrit 34.3 % (37.5-50.1); Hemoglobin 11.5 g/dL (12.9-16.9); Immature Granulocytes % 0.3 % (0-4); Lymphocytes # 1.2 K/mcL (0.6-4.6); Lymphocytes % 32.1 %; Mean Corpuscular HGB Conc 33.5 g/dL (31.6-35.5); Mean Corpuscular Hemoglobin 30.2 pg (28.0-33.3); Mean Platelet Volume 11.1 fL (9.4-12.4); Monocytes # 0.4 K/mcL (0.0-1.3); Monocytes % 9.5 %; Neutrophils # 2.1 K/mcL (1.6-8.9); Platelet Count 111 K/mcL (140-400); Red Blood Count 3.81 M/mcL (4.19-5.50); Red Cell Distribution Width 13.3 % (11.5-14.5); Segmented Neutrophils % 55.5 %; White Blood Count 3.8 K/mcL (4.3-11.1)
[2021-10-18 23:13] LABS: Bilirubin,Urine Negative (Negative); Blood,Urine Negative (Negative); Clarity,Urine Clear (Clear); Color,Urine Light-Yellow (Yellow); Glucose,Urine (UA) Normal (Normal); Ketones,Urine Negative (Negative); Leukocyte Esterase,Urine Negative (Negative); Nitrite,Urine Negative (Negative); Protein,Urine Negative (Neg-Trace); Specific Gravity,Urine 1.011 (1.010-1.025)
[2021-10-18 23:17] LABS: Alanine Aminotransferase 79 Units/L (7-52); Albumin 3.2 g/dL (3.5-5.7); Alkaline Phosphatase 66 Units/L (34-104); Aspartate Amino Transferase 103 Units/L (13-39); BUN/Creatinine Ratio 18 (6-26); Bilirubin,Total 0.4 mg/dL (0.3-1.0); Blood Urea Nitrogen 9 mg/dL (6-20); Calcium 8.4 mg/dL (8.6-10.3); Carbon Dioxide 29 mEq/L (23-29); Chloride 100 mEq/L (98-107); Globulin 3.3 g/dL (2.4-3.5); Glucose 100 mg/dL (70-105); Osmolality,Calculated 275 (280-300); Potassium 3.6 mEq/L (3.5-5.1); Sodium 133 mEq/L (136-145); Total Protein 6.5 g/dL (6.4-8.9); eGFR For African Americans > 60 (> 60); eGFR For Non-African Americans > 60 (> 60)
[2021-10-18] MEDS ORDERED: Ondansetron 4 MG/2 ML VIAL IVP PRN (23:59)
[2021-10-19] MEDS: 0.9 % Sodium Chloride 1,000 ML IVC SCH ×2 (01:29→15:17)
[2021-10-19] MEDS ORDERED: Nitroglycerin 0.4 MG TAB.SUBL SL PRN ×2 (08:18→11:24)
[2021-10-19] MEDS ORDERED: *HR* FentaNYL (PF) 100 MCG/2 ML VIAL IVP PRN ×2 (08:18→11:24)
[2021-10-19] MEDS ORDERED: Naloxone 0.4 MG/ML INJ IVP PRN ×2 (08:18→11:24)
[2021-10-19] MEDS ORDERED: *HR* Metoprolol 5 MG/5 ML VIAL IVP PRN ×2 (08:18→11:24)
[2021-10-19] MEDS ORDERED: Albuterol 2.5 MG/3 ML NEBULIZER IH PRN ×2 (08:18→11:24)
[2021-10-19] MEDS ORDERED: *HR* Succinylcholine 200 MG/10 ML VIAL IVP ONE (08:42)
[2021-10-19] MEDS ORDERED: *HR* Rocuronium Bromide 50 MG/5 ML VIAL ONE (08:42)
[2021-10-19] MEDS ORDERED: Ondansetron 4 MG/2 ML VIAL ONE (08:42)
[2021-10-19] MEDS ORDERED: *HR* FentaNYL (PF) 100 MCG/2 ML VIAL ONE (08:42)
[2021-10-19] MEDS ORDERED: Lidocaine -MPF 2% 2 ML VIAL ONE (08:42)
[2021-10-19] MEDS ORDERED: *HR* Propofol 200 MG/20 ML VIAL IVP ONE (08:43)
[2021-10-19] MEDS ORDERED: *HR* Midazolam HCl 2 MG/2 ML VIAL ONE (08:58)
[2021-10-19] MEDS ORDERED: Dexmedetomidine HCl 400 MCG/100 ML MLS IVC ONE (08:59)
[2021-10-19] MEDS ORDERED: Ketamine HCL *QUVA* 50mg (1mL) SYRINGE ONE (08:59)
[2021-10-19] MEDS ORDERED: EPHEDrine 50 MG/ML VIAL ONE (09:47)
[2021-10-19] MEDS ORDERED: Ketorolac 30 MG/ML VIAL ONE (10:05)
[2021-10-19] MEDS ORDERED: *HR* OxyCODONE Immed Rel 5 MG TABLET PO PRN ×2 (10:27→11:24)
[2021-10-19] MEDS ORDERED: 0.9 % Sodium Chloride 1,000 ML IVC SCH (11:24)
[2021-10-19] MEDS ORDERED: Ondansetron 4 MG/2 ML VIAL IVP PRN (11:24)
[2021-10-19 15:22] VITALS: BP 133/83; PULSE 49; TEMP 97.5; O2SAT 98
== END 2021-10-19 14:56 | disposition home or self-care (01) ==
LOC: EMEROOARM 21:36 → 3ANU 21:36
PROVIDERS: ADMIT Surgery; ATTEND Surgery

== ENCOUNTER 2022-01-03 09:40 | Observation (INO) ==
[2022-01-03 10:50] LABS: Eosinophils # 0.1 K/mcL (0.0-0.6); Eosinophils % 2.3 %; Hematocrit 34.4 % (37.5-50.1); Hemoglobin 11.4 g/dL (12.9-16.9); Immature Granulocytes % 0.4 % (0-4); Immature Platelets 6.1 % (1.1-6.1); Lymphocytes # 0.5 K/mcL (0.6-4.6); Lymphocytes % 20.5 %; Mean Corpuscular HGB Conc 33.1 g/dL (31.6-35.5); Mean Corpuscular Volume 90.5 fL (83.0-100.0); Mean Platelet Volume 10.6 fL (9.4-12.4); Monocytes # 0.3 K/mcL (0.0-1.3); Monocytes % 9.7 %; Neutrophils # 1.7 K/mcL (1.6-8.9); Platelet Count 74 K/mcL (140-400); Red Cell Distribution Width 13.2 % (11.5-14.5); Segmented Neutrophils % 67.1 %; White Blood Count 2.6 K/mcL (4.3-11.1)
[2022-01-03] MEDS ORDERED: Iopamidol - 370 500 ML MLS IVP ONE (10:55)
[2022-01-03 11:09] LABS: BUN/Creatinine Ratio 18 (6-26); Blood Urea Nitrogen 10 mg/dL (6-20); Calcium 8.4 mg/dL (8.6-10.3); Carbon Dioxide 32 mEq/L (23-29); Chloride 103 mEq/L (98-107); Ethanol < 10 mg/dL (Less than 10); Glucose 85 mg/dL (70-105); Osmolality,Calculated 284 (280-300); Potassium 4.1 mEq/L (3.5-5.1); Sodium 138 mEq/L (136-145); eGFR For African Americans > 60 (> 60); eGFR For Non-African Americans > 60 (> 60)
[2022-01-03 11:10] LABS: Troponin I < 0.03 ng/mL (< 0.04)
[2022-01-03 11:30] LABS: Alanine Aminotransferase 152 Units/L (7-52); Albumin 3.2 g/dL (3.5-5.7); Alkaline Phosphatase 64 Units/L (34-104); Aspartate Amino Transferase 204 Units/L (13-39); Bilirubin,Direct 0.1 mg/dL (0.0-0.2); Bilirubin,Indirect 0.3 mg/dL (0.0-1.0); Bilirubin,Total 0.4 mg/dL (0.3-1.0); Globulin 3.1 g/dL (2.4-3.5); INR 1.1; Lipase 18 Units/L (11-82); Prothrombin Time 12.5 Seconds (9.4-12.1); Total Protein 6.3 g/dL (6.4-8.9)
[2022-01-03 11:33] LABS: Activated Partial Thrombo Time 34.7 Seconds (26.0-36.0)
[2022-01-03 11:43] LABS: Thyroid Stimulating Hormone 1.053 mcIU/mL (0.340-5.600)
[2022-01-03 11:59] LABS: Bilirubin,Urine Negative (Negative); Blood,Urine Negative (Negative); Clarity,Urine Clear (Clear); Color,Urine Light-Yellow (Yellow); Glucose,Urine (UA) Normal (Normal); Ketones,Urine Negative (Negative); Leukocyte Esterase,Urine Negative (Negative); Nitrite,Urine Negative (Negative); Protein,Urine Negative (Neg-Trace); Specific Gravity,Urine > 1.030 (1.010-1.025)
[2022-01-03 12:05] LABS: Amphetamine Screen,Urine Negative ng/mL (Cutoff=1000); Barbiturate Screen,Urine Negative ng/mL (Cutoff=200); Benzodiazepines Screen,Urine Negative ng/mL (Cutoff=200); Cannabinoid Screen,Urine Positive ng/mL (Cutoff = 50); Cocaine Screen,Urine Negative ng/mL (Cutoff= 300); Opiate Screen,Urine Negative ng/mL (Cutoff=300); Phencyclidine Screen,Urine Negative ng/mL (Cutoff=25)
[2022-01-03 12:06] LABS: VBG HCO3 30 mEq/L (21-27); VBG PCO2 61 mmHg (41-51); VBG PO2 148 mmHg (25-50)
[2022-01-03] MEDS ORDERED: Ondansetron 4 MG/2 ML VIAL IVP PRN (12:57)
[2022-01-03] MEDS ORDERED: *HR* HYDROcodone/Acet 5/325 mg TABLET PO PRN (12:57)
[2022-01-03] MEDS ORDERED: *HR* OxyCODONE Immed Rel 5 MG TABLET PO PRN (12:57)
[2022-01-03] MEDS ORDERED: Acetaminophen 325 MG TABLET PO PRN (12:57)
[2022-01-03] MEDS ORDERED: Naloxone 0.4 MG/ML INJ IVP PRN (12:57)
[2022-01-03 13:58] LABS: Adenovirus Not Detected (Not Detect); Coronavirus 229E Not Detected (Not Detect); Coronavirus HKU1 Not Detected (Not Detect); Coronavirus NL63 Not Detected (Not Detect); Coronavirus OC43 Not Detected (Not Detect); Human Metapneumovirus Not Detected (Not Detect); Human Rhinovirus/Enterovirus DETECTED (Not Detect); SARS-CoV-2 Not Detected (Not Detect)
[2022-01-03 13:59] LABS: Bordetella Pertussis Not Detected (Not Detect); Chlamydophila pneumoniae Not Detected (Not Detect); Influenza A Subtype 2009 H1 Not Detected (Not Detect); Influenza B Not Detected (Not Detect); Mycoplasma pneumoniae Not Detected (Not Detect); Parainfluenza Virus 1 Not Detected (Not Detect); Parainfluenza Virus 2 Not Detected (Not Detect); Parainfluenza Virus 3 Not Detected (Not Detect); Parainfluenza Virus 4 Not Detected (Not Detect); Respiratory Syncytial Virus Not Detected (Not Detect)
[2022-01-03] MEDS ORDERED: Perflutren Lipid Microsphere 1.3 ML in 0.9 % Sodium Chloride 8.7 ML IVP PRN (16:52)
[2022-01-03] MEDS ORDERED: traZODone 50 MG TABLET PO PRN (17:10)
[2022-01-03] MEDS: lisinopriL 10 MG TABLET PO SCH (21:34)
[2022-01-04 04:45] LABS: Hematocrit 34.7 % (37.5-50.1); Mean Corpuscular Volume 89.4 fL (83.0-100.0); Red Blood Count 3.88 M/mcL (4.19-5.50)
[2022-01-04 04:46] LABS: VBG HCO3 28 mEq/L (21-27); VBG PCO2 36 mmHg (41-51); VBG PO2 117 mmHg (25-50)
[2022-01-04 04:47] LABS: Basophils % 0.4 %; Eosinophils # 0.1 K/mcL (0.0-0.6); Eosinophils % 2.8 %; Hemoglobin 11.4 g/dL (12.9-16.9); Immature Granulocytes % 0.4 % (0-4); Lymphocytes # 0.5 K/mcL (0.6-4.6); Lymphocytes % 16.5 %; Mean Corpuscular HGB Conc 32.9 g/dL (31.6-35.5); Mean Corpuscular Hemoglobin 29.4 pg (28.0-33.3); Mean Platelet Volume 10.7 fL (9.4-12.4); Monocytes # 0.2 K/mcL (0.0-1.3); Neutrophils # 2.1 K/mcL (1.6-8.9); Segmented Neutrophils % 72.9 %; White Blood Count 2.9 K/mcL (4.3-11.1)
[2022-01-04 04:50] LABS: Platelet Count 76 K/mcL (140-400)
[2022-01-04 05:05] LABS: Albumin 3.3 g/dL (3.5-5.7); Albumin/Globulin Ratio 1.2 (1.1-2.2); Bilirubin,Direct 0.1 mg/dL (0.0-0.2); Bilirubin,Indirect 0.4 mg/dL (0.0-1.0); Bilirubin,Total 0.5 mg/dL (0.3-1.0); Globulin 2.7 g/dL (2.4-3.5)
[2022-01-04 05:20] LABS: BUN/Creatinine Ratio 22 (6-26); Blood Urea Nitrogen 11 mg/dL (6-20); Calcium 8.5 mg/dL (8.6-10.3); Carbon Dioxide 23 mEq/L (23-29); Chloride 105 mEq/L (98-107); Glucose 100 mg/dL (70-105); Magnesium 1.6 mg/dL (1.6-2.6); Osmolality,Calculated 281 (280-300); Potassium 4.4 mEq/L (3.5-5.1); Sodium 136 mEq/L (136-145); eGFR For African Americans > 60 (> 60); eGFR For Non-African Americans > 60 (> 60)
[2022-01-04 05:25] LABS: Hepatitis B Surface Antigen Nonreactive (Nonreactive)
[2022-01-04 05:30] LABS: Folate 14.6 ng/mL (3.0-16.0)
[2022-01-04 05:55] LABS: Hepatitis A Antibody IgM Nonreactive (Nonreactive)
[2022-01-04 07:16] LABS: Hepatitis C Virus Antibody Reactive (Nonreactive)
[2022-01-04] MEDS: BuPROPion XL (24 HR) 150 MG TABLET PO SCH (10:13)
[2022-01-04] MEDS: lisinopriL 10 MG TABLET PO SCH ×2 (10:13→21:20)
[2022-01-04] MEDS: *HR* Buprenorphine HCl 2 MG SUBLINGUAL TABLET SL SCH (10:13)
[2022-01-04] MEDS: Lactulose Oral Soln 20 GM/30 ML UDC PO SCH ×2 (10:14→15:11)
[2022-01-04] MEDS: Saline Nasal Spray 44 ML BOTTLE NS PRN ×2 (11:24→15:12)
[2022-01-05] MEDS: Lactulose Oral Soln 20 GM/30 ML UDC PO SCH ×3 (00:33→14:45)
[2022-01-05] MEDS: *HR* Buprenorphine HCl 2 MG SUBLINGUAL TABLET SL SCH (08:29)
[2022-01-05] MEDS: BuPROPion XL (24 HR) 150 MG TABLET PO SCH (08:29)
[2022-01-05] MEDS: lisinopriL 10 MG TABLET PO SCH (08:29)
[2022-01-05 10:11] LABS: Basophils % 0.4 %; Hemoglobin 11.9 g/dL (12.9-16.9); Immature Granulocytes % 0.4 % (0-4)
[2022-01-05 10:13] LABS: Eosinophils # 0.1 K/mcL (0.0-0.6); Eosinophils % 3.5 %; Hematocrit 35.6 % (37.5-50.1); Immature Platelets 6.3 % (1.1-6.1); Lymphocytes # 0.5 K/mcL (0.6-4.6); Lymphocytes % 19.1 %; Mean Corpuscular HGB Conc 33.4 g/dL (31.6-35.5); Mean Corpuscular Volume 89.7 fL (83.0-100.0); Mean Platelet Volume 10.8 fL (9.4-12.4); Monocytes # 0.3 K/mcL (0.0-1.3); Monocytes % 9.9 %; Neutrophils # 1.9 K/mcL (1.6-8.9); Red Blood Count 3.97 M/mcL (4.19-5.50); Segmented Neutrophils % 66.7 %; White Blood Count 2.8 K/mcL (4.3-11.1)
[2022-01-05 10:24] LABS: Platelet Count 74 K/mcL (140-400)
[2022-01-05 10:32] LABS: % Iron Saturation 12 % (20-55); Albumin 3.3 g/dL (3.5-5.7); Bilirubin,Direct 0.2 mg/dL (0.0-0.2); Bilirubin,Indirect 0.3 mg/dL (0.0-1.0); Bilirubin,Total 0.5 mg/dL (0.3-1.0); Globulin 3.4 g/dL (2.4-3.5); Iron 43 mcg/dL (65-175); Total Protein 6.7 g/dL (6.4-8.9); Transferrin 264 mg/dL (203-362)
[2022-01-05 10:33] LABS: BUN/Creatinine Ratio 18 (6-26); Blood Urea Nitrogen 9 mg/dL (6-20); Calcium 8.7 mg/dL (8.6-10.3); Carbon Dioxide 33 mEq/L (23-29); Chloride 101 mEq/L (98-107); Glucose 111 mg/dL (70-105); Magnesium 1.6 mg/dL (1.6-2.6); Osmolality,Calculated 283 (280-300); Potassium 4.4 mEq/L (3.5-5.1); Sodium 137 mEq/L (136-145); eGFR For African Americans > 60 (> 60); eGFR For Non-African Americans > 60 (> 60)
[2022-01-05 11:12] VITALS: O2SAT 97
[2022-01-05] MEDS ORDERED: Nicotine 21 MG PATCH.TD24 TD SCH (12:30)
[2022-01-05 13:51] LABS: Amphetamine Screen,Urine Negative ng/mL (Cutoff=1000); Barbiturate Screen,Urine Negative ng/mL (Cutoff=200); Benzodiazepines Screen,Urine Negative ng/mL (Cutoff=200); Cannabinoid Screen,Urine Positive ng/mL (Cutoff = 50); Cocaine Screen,Urine Negative ng/mL (Cutoff= 300); Opiate Screen,Urine Negative ng/mL (Cutoff=300); Phencyclidine Screen,Urine Negative ng/mL (Cutoff=25)
[2022-01-05 15:41] VITALS: BP 129/82; PULSE 60; TEMP 97.6
== END 2022-01-05 16:35 | disposition left against medical advice (07) ==
LOC: 3BNU 09:40 → EMEROOARM 09:40 → SUATTDRO 13:08 → 3BNU 14:34
PROVIDERS: ADMIT Pharmacist; ATTEND Internal Medicine